=== PATIENT | female | born 1955 | race Caucasian/White ===

== ENCOUNTER → 2017-10-13 15:05 | Outpatient (CLI) | payer OTHER, SELFPAY ==
--- NOTE | 2017-10-13 | DI.RAD.S_ITS ---
PROCEDURE: XR CHEST 2V INDICATIONS: BRONCHITIS TECHNIQUE: 2 views of the chest were acquired. COMPARISON: [facility], , CHEST 2 VIEW, 09/03/2017, 11:38. FINDINGS: Surgical changes and devices: None. Lungs and pleura: No pleural effusions or pneumothorax. 1.5 cm rounded density is seen in the right lung base which may represent a nipple shadow. Otherwise interstitium is prominent no significant change from prior examination. Lung volumes are increased. Mediastinum: Mediastinal contours are normal. Heart size is normal. Bones and chest wall: No suspicious bony abnormalities. Soft tissues appear unremarkable. IMPRESSION: 1. 1.5 cm ill-defined nodular right basilar opacity unchanged which may represent a prominent nipple shadow. When clinically feasible recommend upright chest with nipple markers in position for confirmation. 2. Prominent lung volumes raising the question of COPD and interstitial prominence. Dictated by: J Luis PACK Interpreted: Yuniel Crow MD on 10/13/2017 at 15:20 Approved by: Adi Crow M.D. on 10/16/2017 at 13:01
== END ==
PROVIDERS: Visit Provider Orthopaedic Surgery
DX: J40 Bronchitis, not specified as acute or chronic (principal); R92.8 Other abnormal and inconclusive findings on diagnostic imaging of breast
CPT/HCPCS: 71046

== ENCOUNTER → 2017-10-27 14:35 | Outpatient (CLI) | payer OTHER, SELFPAY ==
--- NOTE | 2017-10-27 | DI.RAD.S_ITS ---
PROCEDURE: XR CHEST 2V INDICATIONS: 62 year-old female with right lower lung nodular opacity on recent chest film. TECHNIQUE: 2 views of the chest were acquired, with nipple markers. COMPARISON: [facility], , XR CHEST 2V, 10/13/2017, 14:51. [facility], , CHEST 2 VIEW, 09/03/2017, 11:38. FINDINGS: Surgical changes and devices: None. Lungs and pleura: No pleural effusions or pneumothorax. Lungs are clear. Previously noted right lower lung finding corresponds with nipple marker. Lung volumes are prominent. Mediastinum: Mediastinal contours are normal. Heart size is normal. Bones and chest wall: No suspicious bony abnormalities. There is small soft tissue calcification adjacent to the right humeral head. IMPRESSION: 1. No acute cardiopulmonary disease. Prominent lung volumes raise the question of chronic obstructive pulmonary disease. 2. Previously reported possible right lower lung nodule corresponds with nipple marker. No further imaging followup is needed. 3. Right shoulder rotator cuff calcific tendinitis. Dictated by: Ramón Womack M.D. on 10/27/2017 at 15:16 Approved by: Ramón Womack M.D. on 10/27/2017 at 15:19
== END ==
PROVIDERS: Visit Provider Family Medicine
DX: R91.8 Other nonspecific abnormal finding of lung field (principal); M75.31 Calcific tendinitis of right shoulder
CPT/HCPCS: 71046

== ENCOUNTER → 2018-06-14 14:59 | Outpatient (CLI) | payer OTHER, SELFPAY ==
--- NOTE | 2018-06-14 | DI.RAD.S_ITS ---
PROCEDURE: XR RIBS RT MIN 3V W CXR 1V INDICATIONS: INTERCOSTAL PAIN TECHNIQUE: 2 views of the right ribs were acquired, along with a single view chest. COMPARISON: None. FINDINGS: Surgical changes and devices: None. Bones and chest wall: No fractures or dislocations. Right shoulder calcific tendinitis No suspicious bony lesions. Overlying soft tissues appear unremarkable. Lungs and pleura: No pleural effusions or pneumothorax. Lungs appear clear. Mediastinum: Mediastinal contours appear normal. Heart size is normal. IMPRESSION: No fracture Right shoulder calcific tendinitis. Dictated by: Bear Suarez M.D. on 06/14/2018 at 16:38 Approved by: Bear Suarez M.D. on 06/14/2018 at 16:41
== END ==
PROVIDERS: Visit Provider Family Medicine
DX: R07.82 Intercostal pain (principal); M75.31 Calcific tendinitis of right shoulder
CPT/HCPCS: 71101

== ENCOUNTER 2019-11-28 10:15 | Emergency (ER) | payer OTHER, SELFPAY ==
[2019-11-28] VITALS (8 sets, daily range): BP systolic 115–138; BP diastolic 63–80; PULSE 75–88; RESP 18–30; TEMP 37; O2SAT 91–97; BMI 15.1
--- NOTE | 2019-11-28 10:41 | PC.NURSE ---
pt pcp tested stool for blood,she was positive sent here. pt denies being dizzy
[2019-11-28 10:45] LABS: Add Manual Diff / Slide Review NO; Basophils Absolute Auto 100 /uL (0-100); Eosinophils Absolute Auto 100 /uL (0-450); Eosinophils Percent Auto 1.1 % (2-4); Hematocrit 41.1 % (36-46); Hemoglobin 13.9 g/dL (12.0-16.0); Lymphocytes Absolute Auto 1400 /uL (1100-4500); Lymphocytes Percent Auto 16.6 % (25-40); Mean Corpuscular HGB Conc 33.9 % (30-36); Mean Corpuscular Hemoglobin 31.1 PG (26-34); Mean Corpuscular Volume 91.6 fL (80-100); Monocytes Absolute Auto 900 /uL (0-900); Monocytes Percent Auto 10.1 % (3-14); Neutrophils Absolute Auto 6100 /uL (1500-7000); Neutrophils Percent Auto 71.2 % (50-75); Platelet Count 294 X10^3/uL (150-400); Red Blood Cell Count 4.49 X10^6/uL (4.0-5.2); White Blood Cell Count 8.5 X10^3/uL (4.5-11.0)
--- NOTE | 2019-11-28 10:47 | ED.GIBLEED ---
HPI - GI Bleed General Chief complaint: GI Bleed Stated complaint: bleeding ulcer Time Seen by Provider: 11/28/19 10:33 Source: patient Mode of arrival: Ambulatory Limitations: no limitations History of Present Illness HPI Narrative: Patient is a 64-year-old female with history of COPD concern for GI bleeding by her PCP. She states she has had pain every time she eats solid food ongoing for about a week. She is able to keep liquids down but she says food and coffee definitely make things much worse. She feels nauseous but has not vomited. She says she has had diarrhea it has been brown however was Hemoccult positive in the office. She denies any dizziness lightheadedness or worsening shortness of breath. Severity: moderate Relieving factors: none Exacerbating factors: none Related Data Previous Rx's Medication Instructions Recorded doxycycline hyclate 100 mg PO Q12H #20 cap 09/03/17 prednisone 40 mg PO AMCC 4 Days #0 tab 09/03/17 omeprazole 40 mg PO BID #60 cap 11/28/19 Allergies Allergy/AdvReac Type Severity Reaction Status Date / Time No Known Drug Allergies Allergy Verified 11/28/19 10:38 Review of Systems Review of Systems Narrative: GENERAL: Denies chills, fatigue, malaise, fever, sweats, travel HEENT: Denies sinus pain, ear pain, sore throat, difficulty swallowing, neck pain RESPIRATORY: Denies dyspnea, cough, wheezing, hemoptysis, sputum. CARDIOVASCULAR: Denies chest pain, palpitations, orthopnea, edema GASTROINTESTINAL: See HPI : Denies dysuria, frequency, incontinence, hematuria, urinary retention, flank pain. MUSCULOSKELETAL: Denies weakness, joint pain, or bony pain SKIN: No rash, no erythema, no pruritus NEUROLOGIC: Denies weakness, dizziness, headache, numbness, change in speech, confusion PSYCHIATRIC: No concerning psychosocial issues. 12 point review of systems is negative except for those stated above and HPI Patient History Medical History COPD exacerbation (Acute) Social History Smoking Status: Current every day smoker Smoking Status: Current every day smoker alcohol intake frequency: holidays/special occasions only Substance Use Type: does not use Exam Initial Vital Signs Initial Vital Signs: Vital Signs Temperature 98.6 F 11/28/19 10:25 Pulse Rate 81 11/28/19 10:25 Respiratory Rate 18 11/28/19 10:25 Blood Pressure 138/71 11/28/19 10:25 Pulse Oximetry 94 11/28/19 10:25 GENERAL: Small frail female in no acute exacerbation HEENT: Head atraumatic,EOMI, pupils reactive CARDIOVASCULAR: Regular rate and rhythm without murmurs, rubs or gallops. RESPIRATORY: Breath sounds equal bilaterally, no wheezes rales or rhonchi. ABDOMEN: Soft, nontender. Normoactive bowel sounds all 4 quadrants. No guarding or rebound. EXTREMITIES: Normal range of motion, no clubbing or edema. Neurovascularly intact NEUROLOGICAL: Alert and oriented x4.Normal gait and speech. SKIN: Warm, dry, no laceration, no petechiae, no rashes or lesions. Course Orders Ordered: ED Orders 11/28/19 10:32 Complete Blood Count AUTO DIFF Stat Comprehensive Metabolic Panel Stat Lactate (Lactic Acid) Stat Lipase Stat Partial Thromboplastin Time Stat Prothrombin Time INR Stat 11/28/19 10:38 EKG-12 Lead Stat 11/28/19 11:26 CT abdomen pelvis w con Stat Discontinued Medications Pantoprazole Sodium (Protonix) 40 mg IV NOW ONE Stop: 11/28/19 10:47 Last Admin: 11/28/19 10:51 Dose: 40 mg Documented by: BYRON Vital Signs Vital signs: Vital Signs - 8 hr 11/28/19 10:25 11/28/19 10:26 11/28/19 10:30 Temperature 98.6 F Pulse Rate 81 81 75 Respiratory Rate 18 23 Blood Pressure 138/71 138/71 134/63 Pulse Oximetry 94 95 97 11/28/19 11:00 11/28/19 11:34 11/28/19 11:35 Temperature Pulse Rate 76 84 Respiratory Rate 30 H 22 Blood Pressure 115/72 127/68 Pulse Oximetry 97 94 11/28/19 12:20 11/28/19 12:21 Temperature Pulse Rate 88 Respiratory Rate 30 H Blood Pressure 134/80 Pulse Oximetry 91 MDM - GI Bleed Lab Data Attestation: I reviewed the patient's lab results. Result diagrams: 11/28/19 10:32 11/28/19 10:32 Labs: Lab Results 0711/28/19 11/28/19 Range/Units 10:32 10:32 10:32 WBC 8.5 (4.5-11.0) X10^3/uL RBC 4.49 (4.0-5.2) X10^6/uL Hgb 13.9 (12.0-16.0) g/dL Hct 41.1 (36-46) % MCV 91.6 (80-100) fL MCH 31.1 (26-34) PG MCHC 33.9 (30-36) % RDW 14.0 (11.6-14.8) % Plt Count 294 (150-400) X10^3/uL Neut % (Auto) 71.2 (50-75) % Lymph % (Auto) 16.6 L (25-40) % [place] % (Auto) 10.1 (3-14) % Eos % (Auto) 1.1 L (2-4) % Baso % (Auto) 1.0 (0-2) % Neut # (Auto) 6100 (0205-0755) /uL Lymph # (Auto) 1400 (5320-8099) /uL [place] # (Auto) 900 (0-900) /uL Eos # (Auto) 100 (0-450) /uL Baso # (Auto) 100 (0-100) /uL PT 11.3 (10.1-12.7) SECONDS INR 1.0 (0.9-1.3) APTT 30 (26.4-36.2) SECONDS Sodium 140 (137-145) mmol/L Potassium 3.5 (3.4-5.1) mmol/L Chloride 105 (98-107) mmol/L Carbon Dioxide 31 (22-32) mmol/L BUN 35 H (7-17) mg/dL Creatinine 0.54 (0.52-1.04) mg/dL Estimated GFR > 60.0 (>60) mL/min BUN/Creatinine Ratio 64.8 H (6-22) Glucose 97 (80-110) mg/dL Lactate (0.7-2.1) mmol/L Calcium 9.2 (8.4-10.2) mg/dL Total Bilirubin 0.4 (0.2-1.3) mg/dL AST 52 H (14-36) IU/L ALT 60 H (<35) IU/L Alkaline Phosphatase 71 (38-126) U/L Total Protein 7.2 (6.3-8.2) g/dL Albumin 4.1 (3.5-5.0) g/dL Globulin 3.1 (1.7-4.1) g/dL Albumin/Globulin Ratio 1.3 (1.0-2.8) Lipase (23-300) U/L 11/28/19 11/28/19 Range/Units 10:32 10:32 WBC (4.5-11.0) X10^3/uL RBC (4.0-5.2) X10^6/uL Hgb (12.0-16.0) g/dL Hct (36-46) % MCV (80-100) fL MCH (26-34) PG MCHC (30-36) % RDW (11.6-14.8) % Plt Count (150-400) X10^3/uL Neut % (Auto) (50-75) % Lymph % (Auto) (25-40) % [place] % (Auto) (3-14) % Eos % (Auto) (2-4) % Baso % (Auto) (0-2) % Neut # (Auto) (9015-4151) /uL Lymph # (Auto) (0818-4786) /uL [place] # (Auto) (0-900) /uL Eos # (Auto) (0-450) /uL Baso # (Auto) (0-100) /uL PT (10.1-12.7) SECONDS INR (0.9-1.3) APTT (26.4-36.2) SECONDS Sodium (137-145) mmol/L Potassium (3.4-5.1) mmol/L Chloride (98-107) mmol/L Carbon Dioxide (22-32) mmol/L BUN (7-17) mg/dL Creatinine (0.52-1.04) mg/dL Estimated GFR (>60) mL/min BUN/Creatinine Ratio (6-22) Glucose (80-110) mg/dL Lactate 0.7 (0.7-2.1) mmol/L Calcium (8.4-10.2) mg/dL Total Bilirubin (0.2-1.3) mg/dL AST (14-36) IU/L ALT (<35) IU/L Alkaline Phosphatase (38-126) U/L Total Protein (6.3-8.2) g/dL Albumin (3.5-5.0) g/dL Globulin (1.7-4.1) g/dL Albumin/Globulin Ratio (1.0-2.8) Lipase 87 (23-300) U/L Urine Dip Bedside Urine Glucose Negative Bedside Urine Bilirubin - Negative Bedside Urine Ketone - Negative Urine Specific [place] 1.005 Bedside Urine Occult Blood - Negative Bedside Urine pH 8.5 Bedside Urine Protein - Negative Bedside Urine Urobilinogen - Negative Bedside Urine Nitrite - Negative Bedside Urine Leukocytes - Negative Esterase Imaging Data CT scan - abdomen/pelvis: Radiologist's Impression: PROCEDURE: CT ABDOMEN PELVIS W CON INDICATIONS: abdominal pain mid TECHNIQUE: After the administration of intravenous contrast, 5 mm thick sections acquired from the diaphragm to the symphysis. 5 mm coronal and sagittal reformats were acquired. For radiation dose reduction, the following was used: automated exposure control, adjustment of mA and/or kV according to patient size. COMPARISON: None. FINDINGS: Image quality: Excellent. ABDOMEN: Lung bases: There are emphysematous changes within the visualized lung bases. Heart size is normal. Solid organs: Evaluation of the liver demonstrates no focal hepatic lesions. The gallbladder appears within normal limits without calcified gallstones. Biliary system is non-dilated. Pancreas enhances normally. No peripancreatic fat stranding or fluid collections. No pancreatic duct dilatation. The spleen is normal in size. No adrenal nodules. Kidneys demonstrate no hydronephrosis. Peritoneum and bowel: There is concentric gastric wall thickening in the antrum. Bowel loops demonstrate normal wall thickness and caliber. Multiple air-fluid levels are demonstrated throughout the small and large bowel. No evidence of appendicitis. No free fluid or air. Nodes and vessels: No retroperitoneal or mesenteric adenopathy by size criteria. Aorta and inferior vena cava are normal in size. Miscellaneous: No ventral hernias. PELVIS: Genitourinary: Bladder wall thickness is normal. Miscellaneous: No inguinal hernias or adenopathy. Bones: No suspicious bony lesions. No vertebral body compression fractures. IMPRESSION: 1. Concentric gastric wall thickening in the antrum consistent with a nonspecific gastritis. 2. Air-fluid levels demonstrated throughout nondilated small and large bowel loops. Findings are nonspecific but suggestive of a gastroenteritis. Dictated by: Eyad Koch M.D. on 11/28/2019 at 11:52 Approved by: Eyad Koch M.D. on 11/28/2019 at 12:00 ECG Data Attestation: I personally reviewed and interpreted this ECG as follows: Interpretation: Normal sinus rhythm rate 76 p.r. interval [address] elevation depression or T-wave in MDM Narrative Medical decision making narrative: Patient's hemoglobin hematocrit are actually within normal limits. She does have pain on palpation the CT does show possible gastritis no perforations. He has had symptoms ongoing for about a week at this time I feel it is safe to start her on omeprazole and have her follow up outpatient with her PCP and for GI referral. Discharge Plan Departure Patient Disposition: Home Clinical Impression: Gastritis Qualifiers: Gastritis type: unspecified gastritis Chronicity: acute Gastritis bleeding: presence of bleeding unspecified Qualified Code(s): K29.00 - Acute gastritis without bleeding Discharge Date/Time: 11/28/19 12:49 Instructions: DI for Gastric Ulcer Activity Restrictions/Additional Instructions: *You have been diagnosed with presumed gastric ulcer *What to do: Avoid acidic foods intake and the increase diet as tolerated. I recommend GI referral for endoscopy and further testing please talk to your primary care provider about this *Continue to take medications as directed Omeprazole 40 mg twice a day 30 minutes before meal *Follow up with your primary care provider in 2-3 days *Return to ER if you should have increasing abdominal pain and dizziness lightheadedness black stools vomiting coffee-ground like substance or any new, worsening or concerning symptoms Prescriptions: New omeprazole 40 mg capsule,delayed release(DR/EC) 40 mg PO BID Qty: 60 RF: 0 No Action doxycycline hyclate 100 MG capsule 100 mg PO Q12H Qty: 20 RF: 0 prednisone 20 MG tablet 40 mg PO AMCC 4 Days Qty: 0 RF: 0 Referrals: Leoncio Rodriguez MD [Primary Care Provider] -
[2019-11-28 10:48] LABS: Prothrombin Time 11.3 SECONDS (10.1-12.7)
[2019-11-28 10:51] LABS: PTT Partial Thromboplastin Tim 30 SECONDS (26.4-36.2)
[2019-11-28] MEDS: PANTOPRAZOLE 40 MG VIAL IV (10:51)
[2019-11-28 10:52] LABS: Alanine Aminotransferase 60 IU/L (<35); Albumin 4.1 g/dL (3.5-5.0); Albumin Globulin Ratio 1.3 (1.0-2.8); Alkaline Phosphatase 71 U/L (38-126); Aspartate Aminotransferase 52 IU/L (14-36); BUN Creatinine Ratio 64.8 (6-22); Bilirubin Total 0.4 mg/dL (0.2-1.3); Blood Urea Nitrogen 35 mg/dL (7-17); Calcium 9.2 mg/dL (8.4-10.2); Carbon Dioxide 31 mmol/L (22-32); Chloride 105 mmol/L (98-107); Estimated Glomerular Filt Rate > 60.0 mL/min (>60); Globulin 3.1 g/dL (1.7-4.1); Glucose 97 mg/dL (80-110); HEMOLYSIS < 15 (0-50); Potassium 3.5 mmol/L (3.4-5.1); Sodium 140 mmol/L (137-145); Total Protein 7.2 g/dL (6.3-8.2)
[2019-11-28 11:01] LABS: Lipase 87 U/L (23-300)
[2019-11-28 11:02] LABS: Lactate (Lactic Acid) 0.7 mmol/L (0.7-2.1)
--- NOTE | 2019-11-28 11:26 | DI.CT.S_ITS ---
PROCEDURE: CT ABDOMEN PELVIS W CON INDICATIONS: abdominal pain mid TECHNIQUE: After the administration of intravenous contrast, 5 mm thick sections acquired from the diaphragm to the symphysis. 5 mm coronal and sagittal reformats were acquired. For radiation dose reduction, the following was used: automated exposure control, adjustment of mA and/or kV according to patient size. COMPARISON: None. FINDINGS: Image quality: Excellent. ABDOMEN: Lung bases: There are emphysematous changes within the visualized lung bases. Heart size is normal. Solid organs: Evaluation of the liver demonstrates no focal hepatic lesions. The gallbladder appears within normal limits without calcified gallstones. Biliary system is non-dilated. Pancreas enhances normally. No peripancreatic fat stranding or fluid collections. No pancreatic duct dilatation. The spleen is normal in size. No adrenal nodules. Kidneys demonstrate no hydronephrosis. Peritoneum and bowel: There is concentric gastric wall thickening in the antrum. Bowel loops demonstrate normal wall thickness and caliber. Multiple air-fluid levels are demonstrated throughout the small and large bowel. No evidence of appendicitis. No free fluid or air. Nodes and vessels: No retroperitoneal or mesenteric adenopathy by size criteria. Aorta and inferior vena cava are normal in size. Miscellaneous: No ventral hernias. PELVIS: Genitourinary: Bladder wall thickness is normal. Miscellaneous: No inguinal hernias or adenopathy. Bones: No suspicious bony lesions. No vertebral body compression fractures. IMPRESSION: 1. Concentric gastric wall thickening in the antrum consistent with a nonspecific gastritis. 2. Air-fluid levels demonstrated throughout nondilated small and large bowel loops. Findings are nonspecific but suggestive of a gastroenteritis. Dictated by: Eyad Koch M.D. on 11/28/2019 at 11:52 Approved by: Eyad Koch M.D. on 11/28/2019 at 12:00
== END 2019-11-28 12:49 | disposition home or self-care (01) ==
PROVIDERS: Emergency Provider Emergency Medicine; PCP Family Medicine
DX: K29.00 Acute gastritis without bleeding (principal)
CPT/HCPCS: 36415; 74177; 80053; 81003; 83605; 83690; 85025; 85610; 85730; 93005; 96374; 99284; C9113; Q9967

== ENCOUNTER → 2020-01-30 16:22 | Outpatient (CLI) | payer OTHER, SELFPAY ==
--- NOTE | 2020-01-30 | DI.RAD.S_ITS ---
PROCEDURE: XR CHEST 2V INDICATIONS: WORSENING COPD TECHNIQUE: 2 views of the chest were acquired. COMPARISON: [facility], CR, XR CHEST 2V, 10/13/2017, 14:51. [facility], CR, XR CHEST 2V, 10/27/2017, 14:18. FINDINGS: Surgical changes and devices: None. Lungs and pleura: Lungs are clear. Lung volumes are increased with flattening of the hemidiaphragms suggesting COPD. Prominent bibasilar nipple shadows are again identified similar to prior examination. No pleural effusions or pneumothorax. Mediastinum: Mediastinal contours are normal. Heart size is normal. Bones and chest wall: No suspicious bony abnormalities. Soft tissues appear unremarkable. IMPRESSION: Lung volumes are increased suggesting COPD, correlate with pulmonary functions test. Bibasilar prominent nipple shadows. Dictated by: J Luis Jason [facility] Interpreted: Ryan Field MD on 01/30/2020 at 16:47 Approved by: Ryan Field M.D. on 01/30/2020 at 16:55
== END ==
PROVIDERS: PCP Family Medicine; Referring Provider Family Medicine; Visit Provider Family Medicine
DX: J44.9 Chronic obstructive pulmonary disease, unspecified (principal)
CPT/HCPCS: 71046

== ENCOUNTER 2021-08-24 09:42 | Inpatient (IN) | payer SELFPAY ==
[2021-08-24] VITALS (20 sets, daily range): BP systolic 122–170; BP diastolic 61–79; PULSE 74–94; RESP 18–30; TEMP 36.7–37.1; O2SAT 85–99; BMI 14.2
--- NOTE | 2021-08-24 09:33 | DI.RAD.S_ITS ---
PROCEDURE: XR CHEST 1V INDICATIONS: SOB TECHNIQUE: One view of the chest was acquired. COMPARISON: None. FINDINGS: Surgical changes and devices: None. Lungs and pleura: Pulmonary hyperinflation and chronic interstitial changes noted. No pneumothorax. Bilateral nipple shadows are symmetric. Mediastinum: Mediastinal contours appear normal. Heart size is normal. Bones and chest wall: Generalized decrease in osseous mineralization noted. Ovoid calcification projecting lateral to the right humeral head may reflect glenohumeral loose body IMPRESSION: No acute cardiopulmonary findings Hyperinflation and chronic interstitial changes Approved by: Pérez Riddle M.D. on 08/24/2021 at 9:25
[2021-08-24] MEDS: ALBUTEROL 2.5 MG/3 ML NEB (ADULT) 5 MG INH (09:51)
[2021-08-24 10:04] LABS: Add Manual Diff / Slide Review NO; Basophils Absolute Auto 0 /uL (0-100); Basophils Percent Auto 0.2 % (0-2); Eosinophils Absolute Auto 0 /uL (0-450); Eosinophils Percent Auto 0.3 % (2-4); Hematocrit 40.5 % (36-46); Hemoglobin 13.4 g/dL (12.0-16.0); Lymphocytes Absolute Auto 1000 /uL (1100-4500); Lymphocytes Percent Auto 7.8 % (25-40); Mean Corpuscular Hemoglobin 31.8 PG (26-34); Mean Corpuscular Volume 96.2 fL (80-100); Monocytes Absolute Auto 1300 /uL (0-900); Monocytes Percent Auto 10.7 % (3-14); Neutrophils Absolute Auto 10000 /uL (1500-7000); Platelet Count 325 X10^3/uL (150-400); Red Blood Cell Count 4.21 X10^6/uL (4.0-5.2); Red Cell Distribution Width 14.1 % (11.6-14.8); White Blood Cell Count 12.3 X10^3/uL (4.5-11.0)
[2021-08-24 10:10] LABS: Alanine Aminotransferase 43 IU/L (<35); Albumin 4.2 g/dL (3.5-5.0); Albumin Globulin Ratio 1.6 (1.0-2.8); Alkaline Phosphatase 46 U/L (38-126); Aspartate Aminotransferase 40 IU/L (14-36); Bilirubin Total 0.5 mg/dL (0.2-1.3); Blood Urea Nitrogen 50 mg/dL (7-17); Calcium 8.8 mg/dL (8.4-10.2); Carbon Dioxide 37 mmol/L (22-32); Chloride 94 mmol/L (98-107); Estimated Glomerular Filt Rate > 60.0 mL/min (>60); Globulin 2.6 g/dL (1.7-4.1); Glucose 103 mg/dL (80-110); HEMOLYSIS < 15 (0-50); Potassium 4.3 mmol/L (3.4-5.1); Sodium 132 mmol/L (137-145); Total Protein 6.8 g/dL (6.3-8.2)
[2021-08-24 10:11] LABS: Lactate (Lactic Acid) 0.6 mmol/L (0.7-2.1)
[2021-08-24 10:40] LABS: COVID19 -Nasal RAPID Negative (Negative)
[2021-08-24] MEDS: ACETAMINOPHEN 325 MG TABLET 650 MG PO (10:44)
--- NOTE | 2021-08-24 11:01 | ED.GENADULT ---
HPI - General Adult General Chief complaint: Shortness of Breath/Dyspnea Stated complaint: SOB, Dyspnea Time Seen by Provider: 08/24/21 10:05 Source: patient and EMS Mode of arrival: EMS History of Present Illness HPI narrative: Patient is a 66-year-old female. Current smoker. History of COPD. Not currently on home oxygen. Does have multiple inhalers that she uses. States that last evening she had a increase in her shortness of breath that worsened throughout the day. She was using her inhalers without any improvement. She does not have any nebulizers at home. She denies any fevers. Does have a cough but not necessarily any more productive than what it normally is. She denies chest pain. No lower extremity swelling. Abdominal pain. No specific neurologic symptoms. She received nebulizer by EMS EN route which she states helped her symptoms quite a bit. She does report that she gets quite a bit of shortness of breath with exertion at baseline. She does not see a special events fundraiser. Related Data Previous Rx's Medication Instructions Recorded doxycycline hyclate 100 mg capsule 100 mg PO Q12H #20 cap 09/03/17 prednisone 20 mg tablet 40 mg PO [facility] 4 Days #0 tab 09/03/17 omeprazole 40 mg capsule,delayed 40 mg PO BID #60 cap 11/28/19 release Allergies Allergy/AdvReac Type Severity Reaction Status Date / Time No Known Drug Allergies Allergy Verified 11/28/19 10:38 Review of Systems Review of Systems ROS Unobtainable: All systems reviewed & are unremarkable except as noted in HPI and below Patient History Medical History COPD exacerbation Social History Smoking Status: Former smoker Smoking Status: Former smoker alcohol intake frequency: holidays/special occasions only Substance Use Type: does not use Exam Initial Vital Signs Initial Vital Signs: Vital Signs Pulse Rate 94 H 08/24/21 09:43 Pulse Oximetry 94 08/24/21 09:43 Const General: cooperative and No in distress HENMT Head: normal to inspection and normocephalic Neck Neck: normal visual inspection Chest Chest: normal inspection of the chest Resp Effort & Inspection: cough, labored and tachypneic Auscultation: rhonchi and wheezes Cardio Rate: regular rate Rhythm: regular rhythm GI Palpation: soft and No tender Skin General: no rashes or lesions noted Neuro General: patient alert, patient awake, patient oriented x3 and moves all extremities Extrem General: capillary refill normal Psych Appearance: grossly normal Course Orders Ordered: Albuterol/Ipratropium (Albuterol/Ipratropium 3 Ml Ampul) 3 ml INH [id number] PRN PRN Reason: Shortness Of Breath Budesonide (Budesonide 0.5 Mg/2 Ml Neb) 0.5 mg INH RTBID DMITRY Enoxaparin Sodium (Enoxaparin 30 Mg/0.3 Ml Syringe) 30 mg SUBCUT DAILY DMITRY Azithromycin 500 mg/ Dextrose 250 mls @ 250 mls/hr IV Q24H DMITRY Nicotine (Nicotine 14 Patch) 14 mg TOP DAILY DMITRY Pantoprazole Sodium (Pantoprazole Dr 20 Mg Tablet) 20 mg PO 0700,2100 DMITRY Prednisone (Prednisone 20 Mg Tablet) 30 mg PO DAILY DMITRY Discontinued Medications Acetaminophen (Acetaminophen 325 Mg Tablet) 650 mg PO NOW ONE Stop: 08/24/21 10:06 Last Admin: 08/24/21 10:44 Dose: 650 mg Documented by: RADHA Albuterol (Albuterol 2.5 Mg/3 Ml Neb (Adult)) 5 mg INH NOW ONE Stop: 08/24/21 09:48 Last Admin: 08/24/21 09:51 Dose: 5 mg Documented by: VANESAO Azithromycin 500 mg/ Dextrose 250 mls @ 250 mls/hr IV NOW ONE Stop: 08/24/21 13:12 Last Infusion: 08/24/21 14:52 Dose: 0 mls/hr Documented by: Admin: 08/24/21 13:30 Dose: 250 mls/hr Documented by: RADHA Ibuprofen (Ibuprofen 400 Mg Tablet) 800 mg PO NOW ONE Stop: 08/24/21 13:16 Last Admin: 08/24/21 13:30 Dose: 800 mg Documented by: RAHDA Methylprednisolone (Methylprednisolone 125 Mg/2 Ml Vial) 125 mg IV NOW ONE Stop: 08/24/21 11:03 Last Admin: 08/24/21 11:15 Dose: 125 mg Documented by: RADHA Vital Signs Vital signs: Vital Signs - 8 hr 08/24/21 11:00 08/24/21 11:30 08/24/21 11:43 Pulse Rate 88 84 Respiratory Rate 28 H 22 Blood Pressure 170/77 H 137/66 Pulse Oximetry 89 L 98 96 08/24/21 11:48 08/24/21 12:00 08/24/21 12:30 Pulse Rate 86 84 Respiratory Rate 30 H 21 Blood Pressure 154/72 H 148/70 H Pulse Oximetry 85 L 92 93 Medical Decision Making Lab Data Lab results reviewed: Yes I reviewed the patient's lab results. Result diagrams: 08/24/21 09:45 08/24/21 09:45 Labs: Lab Results 08/24/21 08/24/21 08/24/21 Range/Units 09:45 09:45 09:45 WBC 12.3 H (4.5-11.0) X10^3/uL RBC 4.21 (4.0-5.2) X10^6/uL Hgb 13.4 (12.0-16.0) g/dL Hct 40.5 (36-46) % MCV 96.2 (80-100) fL MCH 31.8 (26-34) PG MCHC 33.0 (30-36) % RDW 14.1 (11.6-14.8) % Plt Count 325 (150-400) X10^3/uL Neut % (Auto) 81.0 H (50-75) % Lymph % (Auto) 7.8 L (25-40) % [place] % (Auto) 10.7 (3-14) % Eos % (Auto) 0.3 L (2-4) % Baso % (Auto) 0.2 (0-2) % Neut # (Auto) 09219 H (7355-2767) /uL Lymph # (Auto) 1000 L (0985-1468) /uL [place] # (Auto) 1300 H (0-900) /uL Eos # (Auto) 0 (0-450) /uL Baso # (Auto) 0 (0-100) /uL Sodium 132 L (137-145) mmol/L Potassium 4.3 (3.4-5.1) mmol/L Chloride 94 L (98-107) mmol/L Carbon Dioxide 37 H (22-32) mmol/L BUN 50 H (7-17) mg/dL Creatinine 0.41 L (0.52-1.04) mg/dL Estimated GFR > 60.0 (>60) mL/min BUN/Creatinine Ratio 122.0 H (6-22) Glucose 103 (80-110) mg/dL Lactate 0.6 L (0.7-2.1) mmol/L Calcium 8.8 (8.4-10.2) mg/dL Total Bilirubin 0.5 (0.2-1.3) mg/dL AST 40 H (14-36) IU/L ALT 43 H (<35) IU/L Alkaline Phosphatase 46 (38-126) U/L Total Protein 6.8 (6.3-8.2) g/dL Albumin 4.2 (3.5-5.0) g/dL Globulin 2.6 (1.7-4.1) g/dL Albumin/Globulin Ratio 1.6 (1.0-2.8) SARS-CoV-2 (PCR) (Negative) 08/24/21 Range/Units 09:55 WBC (4.5-11.0) X10^3/uL RBC (4.0-5.2) X10^6/uL Hgb (12.0-16.0) g/dL Hct (36-46) % MCV (80-100) fL MCH (26-34) PG MCHC (30-36) % RDW (11.6-14.8) % Plt Count (150-400) X10^3/uL Neut % (Auto) (50-75) % Lymph % (Auto) (25-40) % [place] % (Auto) (3-14) % Eos % (Auto) (2-4) % Baso % (Auto) (0-2) % Neut # (Auto) (9328-2739) /uL Lymph # (Auto) (9057-5612) /uL [place] # (Auto) (0-900) /uL Eos # (Auto) (0-450) /uL Baso # (Auto) (0-100) /uL Sodium (137-145) mmol/L Potassium (3.4-5.1) mmol/L Chloride (98-107) mmol/L Carbon Dioxide (22-32) mmol/L BUN (7-17) mg/dL Creatinine (0.52-1.04) mg/dL Estimated GFR (>60) mL/min BUN/Creatinine Ratio (6-22) Glucose (80-110) mg/dL Lactate (0.7-2.1) mmol/L Calcium (8.4-10.2) mg/dL Total Bilirubin (0.2-1.3) mg/dL AST (14-36) IU/L ALT (<35) IU/L Alkaline Phosphatase (38-126) U/L Total Protein (6.3-8.2) g/dL Albumin (3.5-5.0) g/dL Globulin (1.7-4.1) g/dL Albumin/Globulin Ratio (1.0-2.8) SARS-CoV-2 (PCR) Negative (Negative) MDM Narrative Medical decision making narrative: Patient reports improvement of symptoms after nebulizer treatment. She was also given steroids. Patient did remain somewhat tachypneic and when she was placed on room air her oxygen saturations dropped to the mid 80s without any exertion. This did improve quite a bit with oxygen by nasal cannula. Had at discussion with her and her son who is at bedside. Informed her that I was concerned about discharge home because of her issues with hypoxia although I did admit that she most likely is hypoxic at home and does not necessarily recognize it. Informed her that she was most likely going to require oxygen at home given her presentation today. Despite this conversation and the concerns for worsening of symptoms potentially even the patient stated that she would like to go home and follow-up with her primary doctor for which she has an appointment already scheduled later this week. Patient was going to sign against medical advice paperwork. Emanuel IV was removed and she was taken off the monitors and with a very small amount of exertion to the wheelchair the patient became very tachypneic. Was at that point the patient stated that she was willing to stay. I did discuss the case with Dr. Savage with internal medicine who will admit for further evaluation and treatment. Discharge Plan Departure Patient Disposition: Admitted As Inpatient Clinical Impression: COPD exacerbation, Hypoxia Admit Date/Time: 08/24/21 13:12 Admit Provider: Niyah Savage
[2021-08-24] MEDS: methylPREDNISolone 125 MG/2 ML VIAL IV (11:15)
[2021-08-24] MEDS: AZITHROMYCIN 500 MG in DEXTROSE 5% IN WATER 250 ML IV (13:30)
[2021-08-24] MEDS: IBUPROFEN 400 MG TABLET 800 MG PO (13:30)
--- NOTE | 2021-08-24 13:41 | PC.NURSE ---
Patient decided to stay after she had almost left AMA. Son, Eyad would like his name included in the chart: [phone]
--- NOTE | 2021-08-24 16:27 | PM.HP.1 ---
History of Present Illness History of Present Illness Chief complaint: SOB, Dyspnea Narrative: 66yo female with a hx of GERD and COPD that presents with SOB. She reports this started last night. She was coming home from work, and arrived home once she started feeling SOB. This was not associated with exertion, and occurred even with rest. This was associated with a headache. The patient reports that this has been intermittent issue for a while now. She denies ever being on supplemental oxygen at home. She reports having issues with insurance covering supplemental oxygen in the past. The patient does endorse being on a PO prednisone taper as ordered by her PCP, along with recently finishing 10 days of Augmentin bid. The patient endorses smoking tobacco since the age of 16, approximately 1.5 ppd. She denies EtOH or illicit drug use. She endorses being up-to-date with her cancer screening, i.e. colonoscopy, mammogram, etc. She denies fever/chills, night sweats, hx of VTE, CP, palpitations, peripheral edema, recent travel. She denies any PSH. Family hx is positive for mother and father with DM II, father with heart issues and mother with breast cancer. The patient reports taking her medications, including her inhalers, consistently. She denies any new meds. She has a PCP that she sees regularly. She works as a care provider for intellectually disabled adults. Patient History Medical History (Updated 08/24/21 @ 12:41 by Leoncio De La Rosa DO) COPD exacerbation Family & Social History Safety & Behavioral: Feels Safe in Current Yes Environment Been Physically Hurt or No Threatened By a Person Tobacco & Substance use: Smoking Status Former smoker alcohol intake frequency holiday/special occasion Substance Use Type does not use Meds Home Medications and Allergies Home Medications Medication Instructions Recorded Confirmed Type doxycycline hyclate 100 mg capsule 100 mg PO Q12H #20 cap 09/03/17 Rx prednisone 20 mg tablet 40 mg PO [facility] 4 Days #0 tab 09/03/17 Rx omeprazole 40 mg capsule,delayed 40 mg PO BID #60 cap 11/28/19 Rx release Allergies Allergy/AdvReac Type Severity Reaction Status Date / Time No Known Drug Allergies Allergy Verified 11/28/19 10:38 Review of Systems Constitutional Comments: Denies fever/chills, night sweats. Eyes Comments: Denies vision changes. Cardiovascular Comments: Denies CP, palpitations, peripheral edema. Respiratory Comments: Endorses SOB, and non-productive cough. Gastrointestinal Comments: Denies abd pain, n/v/d. Neurologic Comments: Endorses headache. Denies neck stiffness, photophobia. Exam Vital Signs (past 8 hours): - 08/24/21 09:43 08/24/21 09:50 08/24/21 09:59 Temperature 98.7 F Pulse Rate 94 H 86 Respiratory Rate 26 H Blood Pressure 169/79 H Pulse Oximetry 94 94 94 08/24/21 10:00 08/24/21 10:30 08/24/21 10:50 Temperature Pulse Rate 85 82 Respiratory Rate 22 23 Blood Pressure 169/79 H 154/74 H Pulse Oximetry 89 L 99 98 08/24/21 10:57 08/24/21 11:00 08/24/21 11:30 Temperature Pulse Rate 88 84 Respiratory Rate 28 H 22 Blood Pressure 170/77 H 137/66 Pulse Oximetry 95 89 L 98 08/24/21 11:43 08/24/21 11:48 08/24/21 12:00 Temperature Pulse Rate 86 Respiratory Rate 30 H Blood Pressure 154/72 H Pulse Oximetry 96 85 L 92 08/24/21 12:30 08/24/21 13:40 08/24/21 16:22 Temperature 98.1 F Pulse Rate 84 74 78 Respiratory Rate 21 22 22 Blood Pressure 148/70 H 150/61 H Pulse Oximetry 93 99 92 Oxygen Delivery Method Nasal Cannula Oxygen Flow Rate 5 Const Other: Patient laying in bed comfortably upon my entering the room, in no apparent acute distress. Eyes Other: No scleral icterus appreciated. Neck Other: No carotid bruits appreciated. Resp Other: Scattered expiratory wheezes appreciated bilaterally. Cardio Other: RRR. S1 and S2 normal, with no extra heart sounds or murmurs appreciated. GI Other: Soft, non-distended, non-tender. Bowel sounds present. Skin Other: No grossly abnormal skin lesions noted. Extrem Other: Palpable dorsalis pedis pulses bilaterally. Objective Labs Result Diagrams: 08/24/21 09:45 08/24/21 09:45 Labs: Laboratory Results - last 24 hr 08/24/21 08/24/21 08/24/21 09:45 09:45 09:45 WBC 12.3 H RBC 4.21 Hgb 13.4 Hct 40.5 MCV 96.2 MCH 31.8 MCHC 33.0 RDW 14.1 Plt Count 325 Neut % (Auto) 81.0 H Lymph % (Auto) 7.8 L [place] % (Auto) 10.7 Eos % (Auto) 0.3 L Baso % (Auto) 0.2 Neut # (Auto) 32477 H Lymph # (Auto) 1000 L [place] # (Auto) 1300 H Eos # (Auto) 0 Baso # (Auto) 0 Sodium 132 L Potassium 4.3 Chloride 94 L Carbon Dioxide 37 H BUN 50 H Creatinine 0.41 L Estimated GFR > 60.0 BUN/Creatinine Ratio 122.0 H Glucose 103 Lactate 0.6 L Calcium 8.8 Total Bilirubin 0.5 AST 40 H ALT 43 H Alkaline Phosphatase 46 Total Protein 6.8 Albumin 4.2 Globulin 2.6 Albumin/Globulin Ratio 1.6 SARS-CoV-2 (PCR) 08/24/21 09:55 WBC RBC Hgb Hct MCV MCH MCHC RDW Plt Count Neut % (Auto) Lymph % (Auto) [place] % (Auto) Eos % (Auto) Baso % (Auto) Neut # (Auto) Lymph # (Auto) [place] # (Auto) Eos # (Auto) Baso # (Auto) Sodium Potassium Chloride Carbon Dioxide BUN Creatinine Estimated GFR BUN/Creatinine Ratio Glucose Lactate Calcium Total Bilirubin AST ALT Alkaline Phosphatase Total Protein Albumin Globulin Albumin/Globulin Ratio SARS-CoV-2 (PCR) Negative Assessment & Plan Assessment & Plan narrative: Assessment: 1. Acute exacerbation of COPD 2. GERD 3. Hypertension 4. Nicotine dependency Plan: 1. IV Azithromycin and PO prednisone on-board. Will likely need home oxygen on discharge. Will discharge home on PO levofloxacin 750 mg daily to complete abx course. 2. Will start PO Protonix 20 mg bid, as Prilosec is not on formulary here. 3. Will likely start PO lisinopril 20 mg daily if elevated BP sustained. 4. Patient has 1.5 ppd smoking history since age 16. Will start nicotine patch inpatient. VTE prophylaxis: Lovenox 30 mg daily Code: Full I have utilized all available immediate resources to reconcile the patient's medications. Time Spent With Patient Critical Care time: I spent a total of [] minutes of critical care time on this patient's care today; this time is exclusive of procedural time. Quality MIPS - Admit I confirm the patient?s Advance Care Plan is present, Code status is documented, Surrogate decision maker is in patient?s record [If Yes, STOP here]: Yes
[2021-08-24] MEDS: ALBUTEROL/IPRATROPIUM 3 ML AMPUL INH (19:30)
[2021-08-24] MEDS: BUDESONIDE 0.5 MG/2 ML NEB INH (19:30)
[2021-08-24] MEDS: PANTOPRAZOLE DR 20 MG TABLET PO (21:16)
[2021-08-25] VITALS (9 sets, daily range): BP systolic 111–124; BP diastolic 64–76; PULSE 60–90; RESP 12–22; TEMP 37–37.6; O2SAT 90–97
[2021-08-25] MEDS: PANTOPRAZOLE DR 20 MG TABLET PO ×2 (06:44→20:51)
--- NOTE | 2021-08-25 08:30 | DI.CT.S_ITS ---
PROCEDURE: CT CHEST W CON INDICATIONS: 60 pack-year smoking hx, weight loss, concern for malignancy TECHNIQUE: After the administration of intravenous contrast, 5 mm thick sections acquired from the pulmonary apices to the posterior costophrenic angles. 1 mm axial lung, 5 mm thick coronal and sagittal reformats and 7 mm axial MIP were acquired. For radiation dose reduction, the following was used: automated exposure control, adjustment of mA and/or kV according to patient size. COMPARISON: [facility], CR, XR CHEST 1V, 08/24/2021, 9:48. FINDINGS: Image quality: Excellent. Lungs and pleura: Moderate centrilobular emphysema. Emphysematous changes appear to be worse in the lower lobes bilaterally. Mild biapical pleural-parenchymal scarring. No acute air space opacities. Pleural thickening is seen along the posterior aspect of the superior segment of the right lower lobe adjacent to the major fissure. No pleural effusions or pneumothorax. Central and peripheral airways are patent and normal in caliber. A 7 x 4 mm solid nodule is seen in the lateral left upper lobe (131/3). A few additional smaller tree-in-bud nodules are also seen in the lateral left upper lobe (for example 120/3). Ill-defined ground-glass nodularity is seen more superiorly in the left upper lobe that may have a tree-in-bud configuration (102/3). Mediastinum: Heart size is normal. No pericardial effusion. No mediastinal or hilar adenopathy by size criteria. Thoracic aorta and central pulmonary arteries are normal in size. Esophagus is normal in caliber. No hiatal hernia. Bones and chest wall: No suspicious bony lesions. No vertebral body compression fractures. No axillary or supraclavicular adenopathy by size criteria. Thyroid is unremarkable. Abdomen: Visualized upper abdominal solid organs appear normal. Upper abdominal bowel loops are normal in caliber. IMPRESSION: 1. At least moderate bilateral emphysematous changes, which have a lower lobe predominance. Recommend correlation for other causes of emphysema in addition to smoking. 2. Solid and ground-glass nodules in the lateral left upper lobe measuring up to 7 mm of a predominantly tree-in-bud configuration, suggesting an infectious or inflammatory etiology. Consider short-term follow-up CT in 3 months for further evaluation. 3. No significant lymphadenopathy or signs of metastatic disease within the chest. Dictated by: Michele Gonzales M.D. on 08/25/2021 at 8:42 Approved by: Michele Gonzales M.D. on 08/25/2021 at 9:00
[2021-08-25] MEDS: ALBUTEROL/IPRATROPIUM 3 ML AMPUL INH (08:42)
--- NOTE | 2021-08-25 09:32 | CM.DANOTE ---
DCP: Case received, EMR reviewed and met with patient. Introduced self and role. Was able to obtain information regarding patient's baseline activity level at home prior to hospitalization. DCP assessment completed with information currently available. Patient is a 66 year old female who admitted yesterday afternoon to the care of the hospitalist team. PCP: Dr. Rodriguez. Payer: confirmed: No Insurance. Patient came to the hospital via ambulance secondary to having increased shortness of breath. Patient does not have home oxygen, but has history of COPD. Patient is a current smoker. She was diagnosed with acute COPD. She is currently on oxygen. According to notes, patient was using her inhalers with little improvement. Met with patient in her room. She is alert and oriented, oxygen in place. She resides alone in [place], has a daughter named Colleen that lives near by. She is independent at baseline. She has no medical insurance, stated, she had [employer], but was paying a large amount for it. She has been paying for her medications with [employer]. She does have a primary care provider. Asked her if she does need home oxygen, if she can pay for this. She stated, would like to see how much it costs. Patient was given a joao application from admission counselors. P: DCP to continue to check in, and will see how she does here in the hospital, and if she will need home oxygen. Abril Thrasher RN/Back Hand Discharge Planning/Care Management CM Discharge Assessment Start: 08/25/21 09:31 Freq: Status: Active Protocol: Document 08/25/21 09:31 (Rec: 08/25/21 09:32 [id number]) Discharge Planning Assessment Assigned Molecular Biology Scientist Abril Thrasher RN/Back Hand Advance Directives? No History Provided By Patient,Medical Record Prior Living Arrangements House Household Members none Type of transporation used prior to Drives own vehicle admit Independent with ADL's Yes Is patient alert and oriented? Yes Needs Assistance With Home Chores / Shopping Caregiver for Another No Barriers to Discharge Yes Comment Patient has no medical insurance and may need home oxygen Discharge Plan Home Transportation Arrangement Family Referrals Initiated None needed Whiteboard Updated in Patient Room with Yes name and ext. # of Molecular Biology Scientist Review Status In Process Next Review Type Continued Stay Review
[2021-08-25] MEDS: KETOROLAC 30 MG/ML VIAL IV ×2 (09:40→11:32)
[2021-08-25] MEDS: ENOXAPARIN 30 MG/0.3 ML SYRINGE SUBCUT (09:40)
[2021-08-25] MEDS: predniSONE 20 MG TABLET 30 MG PO (09:40)
--- NOTE | 2021-08-25 11:48 | DIET.CONS ---
Dietary Consultation Note Admission Date: 08/24/2021 13:12 Assessment: 66 y/o F c PMH of GERD and COPD admitted with SOB. Pt with BMI of 14. States she has been losing weight since last year and etiology is unclear. States she has been working with her PCP on this. Denies any changes to appetite or PO. Does seem to go long periods of time without eating, ie no breakfast and >5 hours between meals and >12 hours overnight. Diet recall: B: skipped L: chips and tuna sandwich D: Pizza or tacos sn: prn if hungry Eats more when watching her grandchildren twice per week. Has been drinking low carb protein shake. Prefers Boost though. Has had COPD since 1990. COPD certainly can increase her kcal expenditure. Reports UBW of 145-150# last year, indicating -67# or46% loss over one year. Nutrition focused physical exam: severe temporal, clavicle, shoulder, and interosseous muscle wasting. Ht: 157.48 cm Wt: 35.38 kg BMI: 14.2 UBW: 65.9-68kg reported Last BM: 08/24/21 (08/24/21 20:42) MNA: David Score: 21 Diet: 08/24/21 Dinner Heart Healthy Diet Diet Modifications: Nutrition Percent Meal Consumed 10 08/25/21 09:24 Percent Meal Consumed 75% 08/24/21 17:50 Labs: RBC 4.21 X10^6/uL (4.0-5.2) 08/24/21 09:45 Hgb 13.4 g/dL (12.0-16.0) 08/24/21 09:45 Hct 40.5 % (36-46) 08/24/21 09:45 Creatinine 0.41 mg/dL (0.52-1.04) L 08/24/21 09:45 Lactate 0.6 mmol/L (0.7-2.1) L 08/24/21 09:45 Nutrition Diagnosis: Severe chronic protein calorie malnutrition r/t COPD, predicted inadequate PO, and perhaps some other unknown etiology aeb >20% wt loss in a year, physical signs of malnutrition, and BMI <16. Interventions: ONS BID, education on how to increase/maintain wt/muscle mass. EER: 4004-0200 kcals (30-35kcal/kg per BMI <20) 116-130g PRO (1.5-1.7g/kg per malnutrition) Monitoring/Evaluations: Will monitor PO and ONS tolerance while admitted q 3-4 days. Electronically Signed by: Fauzia Lowery 08/25/21 11:48 Clinical Dietitian [address] [id number]
--- NOTE | 2021-08-25 13:40 | PM.PN.1 ---
Subjective Subjective Interval history: The patient endorses a headache this morning. Symptoms appear consistent with cervical headache. Will give IV Toradol for now. The patient denies any respiratory issues overnight. Exam Vital Signs (past 8 hours): - 08/25/21 08:00 08/25/21 08:43 08/25/21 11:00 Temperature 98.7 F 99.6 F Pulse Rate 82 73 Respiratory Rate 19 21 Blood Pressure 120/64 111/66 Pulse Oximetry 97 96 96 Oxygen Delivery Method Nasal Cannula Oxygen Flow Rate 2 Narrative Exam Narrative: Const Other: Patient laying in bed comfortably upon my entering the room, in no apparent acute distress. Eyes Other: No scleral icterus appreciated. Neck Other: No carotid bruits appreciated. Resp Other: Scattered expiratory wheezes appreciated bilaterally. Cardio Other: RRR. S1 and S2 normal, with no extra heart sounds or murmurs appreciated. GI Other: Soft, non-distended, non-tender. Bowel sounds present. Skin Other: No grossly abnormal skin lesions noted. Extrem Other: Palpable dorsalis pedis pulses bilaterally. Objective Labs Result Diagrams: 08/24/21 09:45 08/24/21 09:45 [facility] Medical History COPD exacerbation Social History household members: none Smoking Status: Former smoker Assessment & Plan Assessment & Plan narrative: Assessment: 1. Acute exacerbation of COPD 2. Acute on chronic hypoxic respiratory failure 3. GERD 4. Hypertension 5. Nicotine dependency Plan: 1. IV Azithromycin and PO prednisone on-board. Will likely need home oxygen on discharge. Will discharge home on PO levofloxacin 750 mg daily to complete abx course. 2. The patient likely has a component of chronic hypoxia from long-standing COPD. Home RT oxygen evaluation. 3. Will start PO Protonix 20 mg bid, as Prilosec is not on formulary here. 4. Will likely start PO lisinopril 20 mg daily if elevated BP sustained. 5. Patient has 1.5 ppd smoking history since age 16. Will start nicotine patch inpatient. VTE prophylaxis: Lovenox 30 mg daily Time Spent With Patient Critical Care time: I spent a total of [] minutes of critical care time on this patient's care today; this time is exclusive of procedural time.
[2021-08-25] MEDS: AZITHROMYCIN 500 MG in DEXTROSE 5% IN WATER 250 ML IV (14:38)
[2021-08-25] MEDS: BUDESONIDE 0.5 MG/2 ML NEB INH (20:25)
[2021-08-26 03:28] VITALS: BP 110/69; PULSE 75; RESP 17; TEMP 36.4; O2SAT 94
[2021-08-26] MEDS: PANTOPRAZOLE DR 20 MG TABLET PO (06:11)
[2021-08-26 07:00] VITALS: O2SAT 93
[2021-08-26 07:35] VITALS: BP 139/67; PULSE 73; RESP 16; TEMP 36.6; O2SAT 95
[2021-08-26] MEDS: KETOROLAC 30 MG/ML VIAL IV (08:56)
[2021-08-26] MEDS: predniSONE 20 MG TABLET 30 MG PO (08:56)
[2021-08-26] MEDS: ENOXAPARIN 30 MG/0.3 ML SYRINGE SUBCUT (08:56)
[2021-08-26 09:42] VITALS: O2SAT 93
[2021-08-26] MEDS: BUDESONIDE 0.5 MG/2 ML NEB INH (09:42)
--- NOTE | 2021-08-26 10:46 | P.PN_ITS ---
Subjective Subjective Interval history: The patient endorses a persistent headache, although she had improvement yesterday with IV Toradol. Will give Tylenol with codeine this morning. CT chest not showing signs of lung malignancy. Exam Vital Signs (past 8 hours): - 08/26/21 03:28 08/26/21 07:35 08/26/21 09:42 Temperature 97.6 F 97.9 F Pulse Rate 75 73 Respiratory Rate 17 16 Blood Pressure 110/69 139/67 Pulse Oximetry 94 95 93 Oxygen Delivery Method Nasal Cannula Oxygen Flow Rate 1 Narrative Exam Narrative: Const Other: Patient laying in bed comfortably upon my entering the room, in no apparent acute distress Eyes Other: No scleral icterus appreciated Neck Other: No carotid bruits appreciated Resp Other: Lungs clear to auscultation bilaterally, although with poor air exchange Cardio Other: RRR. S1 and S2 normal, with no extra heart sounds or murmurs appreciated GI Other: Soft, non-distended, non-tender. Bowel sounds present Skin Other: No grossly abnormal skin lesions noted Extrem Other: Palpable dorsalis pedis pulses bilaterally Objective Labs Result Diagrams: 08/24/21 09:45 08/24/21 09:45 [facility] Medical History COPD exacerbation Social History household members: none Smoking Status: Former smoker Assessment & Plan Assessment & Plan narrative: Assessment: 1. Acute exacerbation of COPD 2. Acute on chronic hypoxic respiratory failure 3. Severe, chronic protein-calorie malnutrition 4. GERD 5. Hypertension 6. Nicotine dependency Plan: 1. IV Azithromycin and PO prednisone on-board. Will likely need home oxygen on discharge, as below. 2. The patient likely has a component of chronic hypoxia from long-standing COPD. Home RT evaluation: Oxygen saturation on room air at rest is 92%, with improvement to 95% on 1 liter oxygen. Oxygen saturation on room air with ambulation is 84%, and improves to 92% with 1 liter oxygen. 3. This is adversely affecting all the patient's other comorbidities. CT chest inpatient did not reveal evidence of lung malignancy. 4. Will start PO Protonix 20 mg bid, as Prilosec is not on formulary here. 5. Will likely start PO lisinopril 20 mg daily if elevated BP sustained. 6. Patient has 1.5 ppd smoking history since age 16. Will start nicotine patch inpatient. VTE prophylaxis: Lovenox 30 mg daily Time Spent With Patient Critical Care time: I spent a total of [] minutes of critical care time on this patient's care today; this time is exclusive of procedural time.
--- NOTE | 2021-08-26 12:42 | CM.DPNOTE ---
Discharge Planning Note: Patient medically stable and ready for discharge home today. 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 INSTRUCTIONAL TECHNOLOGY INSTRUCTOR provided patient with [facility] Application as patient informed she didn't know what had happened to her first provided copy. Patient is discharging home via POV with daughter providing transportation. No other discharge planning needs identified at this time. Jeronimo FIERRO
--- NOTE | 2021-08-26 13:21 | P.DS_ITS ---
History of Present Illness History of Present Illness Chief complaint: SOB, Dyspnea Narrative: 66yo female with a hx of GERD and COPD that presents with SOB. She reports this started last night. She was coming home from work, and arrived home once she started feeling SOB. This was not associated with exertion, and occurred even with rest. This was associated with a headache. The patient reports that this has been intermittent issue for a while now. She denies ever being on supplemental oxygen at home. She reports having issues with insurance covering supplemental oxygen in the past. The patient does endorse being on a PO prednisone taper as ordered by her PCP, along with recently finishing 10 days of Augmentin bid. The patient endorses smoking tobacco since the age of 16, approximately 1.5 ppd. She denies EtOH or illicit drug use. She endorses being up-to-date with her cancer screening, i.e. colonoscopy, mammogram, etc. She denies fever/chills, night sweats, hx of VTE, CP, palpitations, peripheral edema, recent travel. She denies any PSH. Family hx is positive for mother and father with DM II, father with heart issues and mother with breast cancer. The patient reports taking her medications, including her inhalers, consistently. She denies any new meds. She has a PCP that she sees regularly. She works as a care provider for intellectually disabled adults. Discharge Providers Provider Date of admission: 08/24/21 13:12 Discharge Date: 08/26/21 Primary care physician: Leoncio Rodriguez MD Consults: 08/25/21 10:09 Consult to Dietitian, Adult Routine Comment: Reason For Exam: due to patient being underweight Discharge provider: Niyah Savage MD Summary Hospital Course Discharge Diagnosis: 1. Acute exacerbation of COPD 2. Acute on chronic hypoxic respiratory failure 3. Severe, chronic protein-calorie malnutrition 4. GERD 5. Hypertension 6. Nicotine dependency Plan: 1. IV Azithromycin and PO prednisone inpatient. Will need home oxygen on discharge, as below. Will discharge on PO levofloxacin 750 mg daily for 4 more days of abx tx, along with PO prednisone taper at home as PCP arranged. 2. The patient likely has a component of chronic hypoxia from long-standing COPD. Home RT evaluation: Oxygen saturation on room air at rest is 92%, with improvement to 95% on 1 liter oxygen. Oxygen saturation on room air with ambulation is 84%, and improves to 92% with 1 liter oxygen. 3. This is adversely affecting all the patient's other comorbidities. CT chest inpatient did not reveal evidence of lung malignancy. 4. Will start PO Protonix 20 mg bid, as Prilosec is not on formulary here. 5. Did not require initiation of anti-HTN meds inpatient. 6. Patient has 1.5 ppd smoking history since age 16. Nicotine patch inpatient. Exam Vital Signs (past 8 hours): - 08/26/21 07:00 08/26/21 07:35 08/26/21 09:42 Temperature 97.9 F Pulse Rate 73 Respiratory Rate 16 Blood Pressure 139/67 Pulse Oximetry 93 95 93 Oxygen Delivery Method Nasal Cannula Oxygen Flow Rate 1 Objective Labs Result Diagrams: 08/24/21 09:45 08/24/21 09:45 [facility] Medical History COPD exacerbation Social History household members: none Smoking Status: Former smoker Discharge Assessment & Plan Assessment and Plan Assessment: 1. Acute exacerbation of COPD 2. Acute on chronic hypoxic respiratory failure 3. Severe, chronic protein-calorie malnutrition 4. GERD 5. Hypertension 6. Nicotine dependency Plan: 1. IV Azithromycin and PO prednisone inpatient. Will need home oxygen on discharge, as below. Will discharge on PO levofloxacin 750 mg daily for 4 more days of abx tx, along with PO prednisone taper at home as PCP arranged. 2. The patient likely has a component of chronic hypoxia from long-standing COPD. Home RT evaluation: Oxygen saturation on room air at rest is 92%, with improvement to 95% on 1 liter oxygen. Oxygen saturation on room air with ambulation is 84%, and improves to 92% with 1 liter oxygen. 3. This is adversely affecting all the patient's other comorbidities. CT chest inpatient did not reveal evidence of lung malignancy. 4. Will start PO Protonix 20 mg bid, as Prilosec is not on formulary here. 5. Did not require initiation of anti-HTN meds inpatient. 6. Patient has 1.5 ppd smoking history since age 16. Nicotine patch inpatient. Discharge Plan Discharge Plan Patient Disposition: Home Discharge orders & Medications Prescriptions: New levofloxacin 750 mg tablet 750 mg PO DAILY 4 Days Qty: 4 0RF Continued prednisone 20 MG tablet 40 mg PO [facility] 4 Days Qty: 0 0RF omeprazole 40 mg capsule,delayed release(DR/EC) 40 mg PO BID Qty: 60 0RF Discontinued doxycycline hyclate 100 MG capsule 100 mg PO Q12H Qty: 20 0RF Follow up/Referrals: Leoncio Rodriguez MD [Primary Care Provider] - Visit Report/Discharge Packet Instructions: DI for Chronic Obstructive Pulmonary Disease Stand Alone Forms: Against Medical Advice Discharge Data Primary Care Provider: Leoncio Rodriguez
[2021-08-26 13:45] VITALS: BP 131/69; PULSE 80; RESP 16; TEMP 36.9; O2SAT 92
--- NOTE | 2021-08-26 16:39 | PC.NURSE ---
Pt discharged at 1615, escorted off floor in wheelchair, accompanied by hospital staff and daughter. IV removed, discharge teaching provided including importance of follow up appointments, new medications, and oxygen use at home. Pt left on home oxygen and with all belongings.
== END 2021-08-26 16:30 | disposition home or self-care (01) | DRG 190 ==
LOC: ED 13:07 → AC 13:13
PROVIDERS: Admitting Provider Student in an Organized Health Care Education/Training Program; Emergency Provider Emergency Medicine; PCP Family Medicine; Referring Provider Emergency Medicine; Visit Provider Student in an Organized Health Care Education/Training Program
DX: J44.1 Chronic obstructive pulmonary disease with (acute) exacerbation (principal); J96.21 Acute and chronic respiratory failure with hypoxia; E43 Unspecified severe protein-calorie malnutrition; Z68.1 Body mass index [BMI] 19.9 or less, adult; K21.9 Gastro-esophageal reflux disease without esophagitis; G44.86 Cervicogenic headache; F17.210 Nicotine dependence, cigarettes, uncomplicated; Z20.822 Contact with and (suspected) exposure to COVID-19
CPT/HCPCS: 71045; 71260; 80053; 83605; 85025; 87635; 93005; 94618; 94640; 94762; 96365; 96375; 99284; 99285; C9803; J1650; J1885; J2930; J7613

== ENCOUNTER 2022-04-07 16:19 | Inpatient (IN) | payer SELFPAY ==
[2021-08-24 15:54] VITALS: BMI 14.2
[2022-04-07] VITALS (17 sets, daily range): BP systolic 116–157; BP diastolic 57–89; PULSE 96–118; RESP 20–30; TEMP 36.6–37.3; O2SAT 91–98; BMI 17.4; BMI 15.7
--- NOTE | 2022-04-07 17:08 | DI.RAD.S_ITS ---
PROCEDURE: XR CHEST 2V INDICATIONS: shortness of breath TECHNIQUE: 2 views of the chest were acquired. COMPARISON: [facility], CT, CT CHEST W CON, 08/25/2021, 8:21. [facility], CR, XR CHEST 2V, 01/30/2020, 16:26. [facility], CR, XR CHEST 1V, 08/24/2021, 9:48. FINDINGS: Surgical changes and devices: None. Lungs and pleura: Lungs are clear. No pleural effusions or pneumothorax. The lungs are hyperexpanded, with flattening of the hemidiaphragms seen. Mediastinum: The cardiac contours are within normal limits. The aorta demonstrates calcification and tortuosity. Bones and chest wall: No suspicious bony abnormalities. Accentuated thoracic kyphosis is seen. Age-appropriate bony degenerative changes are seen. Soft tissues appear unremarkable. IMPRESSION: Hyperexpanded lungs, without an acute cardiopulmonary process identified. Dictated by: Flavio Esparza M.D. on 04/07/2022 at 16:21 Approved by: Flavio Esparza M.D. on 04/07/2022 at 16:22
[2022-04-07 17:58] LABS: Influenza A - CEPHEID Flu A NEGATIVE (NEGATIVE); Influenza B - CEPHEID Flu B NEGATIVE (NEGATIVE)
[2022-04-07 18:09] LABS: COVID-19 CEPHEID 4-PLEX PCR Negative (Negative)
[2022-04-07 19:27] LABS: Lactate (Lactic Acid) 1.3 mmol/L (0.7-2.1)
[2022-04-07 19:28] LABS: Alanine Aminotransferase 24 IU/L (<35); Albumin 4.5 g/dL (3.5-5.0); Albumin Globulin Ratio 1.1 (1.0-2.8); Alkaline Phosphatase 101 U/L (38-126); Aspartate Aminotransferase 27 IU/L (14-36); BUN Creatinine Ratio 40.7 (6-22); Bilirubin Total 0.7 mg/dL (0.2-1.3); Blood Urea Nitrogen 22 mg/dL (7-17); Calcium 9.7 mg/dL (8.4-10.2); Carbon Dioxide 30 mmol/L (22-32); Chloride 96 mmol/L (98-107); Estimated Glomerular Filt Rate > 60 mL/min (>60); Globulin 4.2 g/dL (1.7-4.1); Glucose 129 mg/dL (80-110); HEMOLYSIS < 15 (0-50); Potassium 4.5 mmol/L (3.4-5.1); Sodium 137 mmol/L (137-145); Total Protein 8.7 g/dL (6.3-8.2)
[2022-04-07 19:33] LABS: Add Manual Diff / Slide Review NO; Basophils Absolute Auto 0 /uL (0-100); Basophils Percent Auto 0.2 % (0-2); Eosinophils Absolute Auto 0 /uL (0-450); Eosinophils Percent Auto 0.2 % (2-4); Hematocrit 40.1 % (36-46); Hemoglobin 13.3 g/dL (12.0-16.0); Lymphocytes Absolute Auto 600 /uL (1100-4500); Lymphocytes Percent Auto 3.3 % (25-40); Mean Corpuscular HGB Conc 33.2 % (30-36); Mean Corpuscular Hemoglobin 30.8 PG (26-34); Mean Corpuscular Volume 92.8 fL (80-100); Monocytes Absolute Auto 2600 /uL (0-900); Monocytes Percent Auto 13.6 % (3-14); Neutrophils Absolute Auto 16000 /uL (1500-7000); Neutrophils Percent Auto 82.7 % (50-75); Platelet Count 347 X10^3/uL (150-400); Red Blood Cell Count 4.32 X10^6/uL (4.0-5.2); Red Cell Distribution Width 13.1 % (11.6-14.8); White Blood Cell Count 19.3 X10^3/uL (4.5-11.0)
--- NOTE | 2022-04-07 19:45 | DI.CT.S_ITS ---
PROCEDURE: CT ANGIO CHEST PE PROTOCOL INDICATIONS: SHORT OF BREATH TECHNIQUE: After the administration of intravenous contrast, 2 mm thick sections acquired from the pulmonary apices to the posterior costophrenic angles. 3-dimensional maximum intensity projection (MIP) coronal and sagittal reformats were then acquired through the thorax. For radiation dose reduction, the following was used: automated exposure control, adjustment of mA and/or kV according to patient size. COMPARISON: [facility], CT, CT CHEST W CON, 08/25/2021, 8:21. FINDINGS: Image quality: Excellent. Pulmonary arteries: Pulmonary arteries are normal in size, and demonstrate no intraluminal filling defects to suggest central pulmonary embolism. Lower Neck: No lymphadenopathy by size criteria. Thyroid: Visualized thyroid demonstrates no discrete nodules. Axillae: No lymphadenopathy by size criteria. Chest Wall: Unremarkable. Bones: Visualized osseous structures demonstrate no suspicious lesions. Lungs and Airways: There are severe centrilobular emphysematous changes. Multiple bilateral clustered irregular nodules are demonstrated involving all lobes but with a basilar predominance. No focal consolidation. The trachea and central airways are patent. There is mild perihilar bronchial wall thickening. Pleura: No pneumothorax or pleural effusions. Heart: Heart size is normal. No pericardial effusion. Thoracic Vessels: The thoracic aorta is normal in size. Mediastinum and Joann: No lymphadenopathy by size criteria. Esophagus: No wall thickening. No hiatal hernia. Abdomen: Visualized upper abdominal solid organs appear normal in the early arterial phase of enhancement. IMPRESSION: 1. No evidence of pulmonary embolism. 2. Multiple bilateral clustered irregular pulmonary nodules with a basilar predominance. Findings most likely represent atypical infection such as from mycobacterial or fungal etiologies. Recommend a short-term follow-up following appropriate therapy in 3 months to demonstrate resolution. 3. Severe centrilobular emphysematous changes. Dictated by: Eyad Koch M.D. on 04/07/2022 at 20:57 Approved by: Eyad Koch M.D. on 04/07/2022 at 21:02
--- NOTE | 2022-04-07 19:46 | ED.SOB ---
HPI - SOB/Dyspnea General Chief Complaint: Upper Respiratory Symptoms Stated Complaint: difficulty breathing Time Seen by Provider: 04/07/22 19:39 Mode of arrival: Wheelchair History of Present Illness HPI Narrative: Patient here with daughter. Complains of shortness breath and cough for the past 2 days. Patient is on 2 L nasal cannula continuously at home. Requiring 3 L at home now. Last breathing treatment earlier today. Not improving. Has not been on steroids recently. Last admission for COPD exacerbation July of this year. Has had dry cough. No known sick contacts. Has chills but no fever. White cell count noted. Related Data Home Medications Medication Instructions Recorded Confirmed budesonide-formoterol HFA 160 2 puff inhalation BID 04/07/22 04/07/22 mcg-4.5 mcg/actuation aerosol inhaler Previous Rx's Medication Instructions Recorded prednisone 20 mg tablet 40 mg PO [facility] 4 days #0 tabs 09/03/17 Allergies Allergy/AdvReac Type Severity Reaction Status Date / Time No Known Drug Allergies Allergy Verified 11/28/19 10:38 Review of Systems Review of Systems Narrative: GENERAL: Positive chills, negative fatigue, malaise, fever, sweats. HEENT: Denies sinus pain, ear pain, sore throat RESPIRATORY: Positive dyspnea, cough CARDIOVASCULAR: Denies chest pain, palpitations GASTROINTESTINAL: Denies nausea, vomiting, abdominal pain : Denies dysuria, frequency, hematuria MUSCULOSKELETAL: denies muscle or bony pain SKIN: Denies rash, skin lesions NEUROLOGIC: Denies weakness, numbness ROS Unobtainable: All systems reviewed & are unremarkable except as noted in HPI and below Patient History Medical History (Updated 04/07/22 @ 23:32 by KRISTOFER Conley) BMI less than 19,adult Chronic respiratory failure with hypoxia, on home O2 therapy COPD exacerbation Emphysema lung Tobacco abuse Family History (Updated 04/07/22 @ 23:31 by KRISTOFER Conley) Father Diabetes mellitus Congestive heart failure Mother Diabetes mellitus Social History household members: none Smoking Status: Former smoker alcohol intake: current Smoking Status: Former smoker alcohol intake frequency: holidays/special occasions only Substance Use Type: does not use Exam Narrative Exam Narrative: GENERAL: in no distress, not toxic moderate dyspneic HEAD: Normocephalic. EYES: Pupils equal round No scleral icterus. ENT: Mucous membranes moist. NECK: Trachea midline. CARDIOVASCULAR: Regular rate and rhythm without murmurs RESPIRATORY: Speaking short sentences. On nasal cannula. Diminished lung sounds bilaterally. No rhonchi or rales. GASTROINTESTINAL: Abdomen soft, non-tender EXTREMITIES: No gross deformities. BACK: No flank tenderness. NEURO: AOx4. SKIN: Warm and dry PSYCH: Not anxious, is cooperative Initial Vital Signs Initial Vital Signs: Vital Signs Temperature 97.9 F 04/07/22 17:02 Pulse Rate 107 H 04/07/22 17:02 Respiratory Rate 22 04/07/22 17:02 Blood Pressure 145/89 H 04/07/22 17:02 Pulse Oximetry 91 04/07/22 17:02 Oxygen Delivery Method 04/07/22 17:02 Oxygen Flow Rate 2 04/07/22 17:02 Course Course Course Narrative: No new issues during course of stay Decision to Admit Date: 04/07/22 Decision to Admit time: 19:48 Orders Ordered: ED Orders 04/07/22 19:00 Complete Blood Count AUTO DIFF Stat Comprehensive Metabolic Panel Stat Lactate (Lactic Acid) Stat Procalcitonin Stat 04/07/22 19:23 EKG-12 Lead Stat 04/07/22 19:45 CT angio chest PE protocol Stat 04/07/22 22:12 Blood Culture Stat Acetaminophen (Acetaminophen 325 Mg Tablet) 650 mg PO Q6H PRN PRN Reason: Fever/Mild Pain (1-3) Last Admin: 04/08/22 00:56 Dose: 650 mg Documented By: Albuterol/Ipratropium (Albuterol/Ipratropium 3 Ml Ampul) 3 ml INH [id number] [facility] Last Admin: 04/07/22 23:43 Dose: Not Given Documented By: LEN Enoxaparin Sodium (Enoxaparin 40 Mg/0.4 Ml Syringe) 40 mg SUBCUT DAILY [facility] Piperacillin Sod/Tazobactam (Sod 3.375 gm/ Sodium Chloride) 100 mls @ 25 mls/hr IV Q8H [facility] Stop: 04/13/22 05:59 Vancomycin HCl (Vancomycin) 1,000 mg in 200 mls @ 150 mls/hr IV NOW [facility] Last Admin: 04/08/22 01:49 Dose: 150 mls/hr Documented By: Vancomycin HCl 500 mg/ Sodium (Chloride) 100 mls @ 100 mls/hr IV Q24H [facility] Levofloxacin (Levofloxacin 250 Mg Tablet) 750 mg PO DAILY [facility] Stop: 04/13/22 08:59 Naloxone HCl (Naloxone 0.4 Mg/Ml Vial) 0.2 mg IV Q2MIN PRN PRN Reason: Opiate Reversal Prednisone (Prednisone 20 Mg Tablet) 40 mg PO DAILY [facility] Discontinued Medications Acetaminophen (Acetaminophen 325 Mg Tablet) 650 mg PO NOW ONE Stop: 04/07/22 22:37 Last Admin: 04/07/22 22:40 Dose: 650 mg Documented By: YUNG Albuterol/Ipratropium (Albuterol/Ipratropium 3 Ml Ampul) 3 ml INH NOW ONE Stop: 04/07/22 19:45 Last Admin: 04/07/22 19:48 Dose: 3 ml Documented By: LEN Albuterol/Ipratropium (Albuterol/Ipratropium 3 Ml Ampul) 3 ml INH NOW ONE Stop: 04/07/22 20:32 Last Admin: 04/07/22 19:59 Dose: 3 ml Documented By: LEN Albuterol/Ipratropium (Albuterol/Ipratropium 3 Ml Ampul) 3 ml INH NOW ONE Stop: 04/07/22 20:32 Last Admin: 04/07/22 19:59 Dose: 3 ml Documented By: LEN Ceftriaxone Sodium 2,000 mg/ (Sodium Chloride) 100 mls @ 200 mls/hr IV NOW ONE Stop: 04/07/22 21:56 Last Infusion: 04/07/22 22:41 Dose: 0 mls/hr Documented By: Admin: 04/07/22 22:11 Dose: 200 mls/hr Documented By: DINORAH Azithromycin 500 mg/ Dextrose 250 mls @ 250 mls/hr IV NOW ONE Stop: 04/07/22 21:56 Last Admin: 04/07/22 22:41 Dose: 250 mls/hr Documented By: YUNG Piperacillin Sod/Tazobactam (Sod 4.5 gm/ Sodium Chloride) 100 mls @ 200 mls/hr IV NOW ONE Stop: 04/07/22 22:29 Last Admin: 04/08/22 00:55 Dose: 200 mls/hr Documented By: Methylprednisolone (Methylprednisolone 125 Mg/2 Ml Vial) 125 mg IV NOW ONE Stop: 04/07/22 19:46 Last Admin: 04/07/22 19:50 Dose: 125 mg Documented By: DINORAH Vancomycin HCl (Vancomycin Per Pharmacy) 1 request MISC NOW ONE Stop: 04/07/22 22:29 Reevaluation(s) Reevaluation #1: pt feeling better after breathing treatments. Breath sounds feel better. Reviewed results with patient. Agrees for admit. Time: 21:59 Consultations Consultation #1: Spoke with hospitalist, Natalie Ayala, will admit patient Time: 22:24 Vital Signs Vital signs: Vital Signs - 8 hr 04/07/22 19:48 04/07/22 18:51 04/07/22 18:54 Pulse Rate 105 H 114 H Respiratory Rate 30 H 22 Blood Pressure 147/67 H Pulse Oximetry 97 94 Oxygen Delivery Method Nasal Cannula Oxygen Flow Rate 3 Fraction of Inspired Oxygen 32 04/07/22 18:54 04/07/22 19:00 04/07/22 19:02 Pulse Rate 111 H 113 H 110 H Respiratory Rate 21 26 H 24 Blood Pressure Pulse Oximetry 96 97 95 Oxygen Delivery Method Oxygen Flow Rate Fraction of Inspired Oxygen 04/07/22 19:02 04/07/22 19:30 04/07/22 19:30 Pulse Rate 113 H Respiratory Rate 25 H Blood Pressure 151/70 H 157/77 H Pulse Oximetry 92 Oxygen Delivery Method Oxygen Flow Rate Fraction of Inspired Oxygen 04/07/22 20:00 04/07/22 20:00 04/07/22 20:47 Pulse Rate 107 H 108 H Respiratory Rate 25 H 28 H Blood Pressure 137/66 Pulse Oximetry 97 96 Oxygen Delivery Method Nasal Cannula Oxygen Flow Rate 3 Fraction of Inspired Oxygen 32 04/07/22 20:28 04/07/22 20:28 04/07/22 20:30 Pulse Rate 118 H Respiratory Rate 23 Blood Pressure 133/66 134/63 Pulse Oximetry 97 Oxygen Delivery Method Oxygen Flow Rate Fraction of Inspired Oxygen 04/07/22 20:30 04/07/22 21:00 04/07/22 21:00 Pulse Rate 117 H 115 H Respiratory Rate 24 23 Blood Pressure 128/67 Pulse Oximetry 98 97 Oxygen Delivery Method Oxygen Flow Rate Fraction of Inspired Oxygen 04/07/22 21:30 04/07/22 21:30 04/07/22 22:00 Pulse Rate 109 H Respiratory Rate 26 H Blood Pressure 116/57 L 123/68 Pulse Oximetry 95 Oxygen Delivery Method Oxygen Flow Rate Fraction of Inspired Oxygen 04/07/22 22:00 Pulse Rate 103 H Respiratory Rate 26 H Blood Pressure Pulse Oximetry 95 Oxygen Delivery Method Oxygen Flow Rate Fraction of Inspired Oxygen MDM - SOB/Dyspnea Differential Diagnosis Differential diagnosis: Likely acute exacerbation of chronic obstructive airways disease, community acquired pneumonia and pulmonary embolism Lab Data Result diagrams: 04/07/22 19:00 04/07/22 19:00 Labs: Lab Results 04/07/22 04/07/22 04/07/22 Range/Units 17:08 19:00 19:00 WBC 19.3 H (4.5-11.0) X10^3/uL RBC 4.32 (4.0-5.2) X10^6/uL Hgb 13.3 (12.0-16.0) g/dL Hct 40.1 (36-46) % MCV 92.8 (80-100) fL MCH 30.8 (26-34) PG MCHC 33.2 (30-36) % RDW 13.1 (11.6-14.8) % Plt Count 347 (150-400) X10^3/uL Neut % (Auto) 82.7 H (50-75) % Lymph % (Auto) 3.3 L (25-40) % Creek % (Auto) 13.6 (3-14) % Eos % (Auto) 0.2 L (2-4) % Baso % (Auto) 0.2 (0-2) % Neut # (Auto) 45043 H (3674-4406) /uL Lymph # (Auto) 600 L (6558-6100) /uL Creek # (Auto) 2600 H (0-900) /uL Eos # (Auto) 0 (0-450) /uL Baso # (Auto) 0 (0-100) /uL Sodium 137 (137-145) mmol/L Potassium 4.5 (3.4-5.1) mmol/L Chloride 96 L (98-107) mmol/L Carbon Dioxide 30 (22-32) mmol/L BUN 22 H (7-17) mg/dL Creatinine 0.54 (0.52-1.04) mg/dL Estimated GFR > 60 (>60) mL/min BUN/Creatinine Ratio 40.7 H (6-22) Glucose 129 H (80-110) mg/dL Lactate (0.7-2.1) mmol/L Calcium 9.7 (8.4-10.2) mg/dL Magnesium (1.6-2.3) mg/dL Total Bilirubin 0.7 (0.2-1.3) mg/dL AST 27 (14-36) IU/L ALT 24 (<35) IU/L Alkaline Phosphatase 101 (38-126) U/L C-Reactive Protein (<1.0) mg/dL NT-Pro-B Natriuret Pep (<125) pg/mL Total Protein 8.7 H (6.3-8.2) g/dL Albumin 4.5 (3.5-5.0) g/dL Globulin 4.2 H (1.7-4.1) g/dL Albumin/Globulin Ratio 1.1 (1.0-2.8) Procalcitonin (<0.5) ng/mL SARS-CoV-2 (PCR) Negative (Negative) Influenza A (RT-PCR) Flu a negative (NEGATIVE) Influenza B (RT-PCR) Flu b negative (NEGATIVE) 04/07/22 04/07/22 04/07/22 Range/Units 19:00 19:00 19:00 WBC (4.5-11.0) X10^3/uL RBC (4.0-5.2) X10^6/uL Hgb (12.0-16.0) g/dL Hct (36-46) % MCV (80-100) fL MCH (26-34) PG MCHC (30-36) % RDW (11.6-14.8) % Plt Count (150-400) X10^3/uL Neut % (Auto) (50-75) % Lymph % (Auto) (25-40) % Creek % (Auto) (3-14) % Eos % (Auto) (2-4) % Baso % (Auto) (0-2) % Neut # (Auto) (1245-7151) /uL Lymph # (Auto) (3419-9745) /uL Creek # (Auto) (0-900) /uL Eos # (Auto) (0-450) /uL Baso # (Auto) (0-100) /uL Sodium (137-145) mmol/L Potassium (3.4-5.1) mmol/L Chloride (98-107) mmol/L Carbon Dioxide (22-32) mmol/L BUN (7-17) mg/dL Creatinine (0.52-1.04) mg/dL Estimated GFR (>60) mL/min BUN/Creatinine Ratio (6-22) Glucose (80-110) mg/dL Lactate 1.3 (0.7-2.1) mmol/L Calcium (8.4-10.2) mg/dL Magnesium 1.9 (1.6-2.3) mg/dL Total Bilirubin (0.2-1.3) mg/dL AST (14-36) IU/L ALT (<35) IU/L Alkaline Phosphatase (38-126) U/L C-Reactive Protein 7.8 H (<1.0) mg/dL NT-Pro-B Natriuret Pep 339 H (<125) pg/mL Total Protein (6.3-8.2) g/dL Albumin (3.5-5.0) g/dL Globulin (1.7-4.1) g/dL Albumin/Globulin Ratio (1.0-2.8) Procalcitonin 0.13 (<0.5) ng/mL SARS-CoV-2 (PCR) (Negative) Influenza A (RT-PCR) (NEGATIVE) Influenza B (RT-PCR) (NEGATIVE) Imaging Data Chest x-ray: Radiologist's Impression: [address] [address] XRay Report Signed Patient: Apolonia Barba MR#: [id number] : 1955 Acct:[id number] Age/Sex: 66 / F Date of Service: 04/07/22 Loc: ED Accession Number: [id number] ?? Procedure: XR chest 2V Ordering Provider: Colleen Coelho D.O. PROCEDURE:? XR CHEST 2V ? INDICATIONS:? shortness of breath ? TECHNIQUE:? 2 views of the chest were acquired.? ? COMPARISON:? [facility], CT, CT CHEST W CON, 08/25/2021, 8:21.? [facility], CR, XR CHEST 2V, 01/30/2020, 16:26.? [facility], CR, XR CHEST 1V, 08/24/2021, 9:48. ? FINDINGS:? ? Surgical changes and devices:? None.? ? Lungs and pleura:? Lungs are clear.? No pleural effusions or pneumothorax.? The lungs are hyperexpanded, with flattening of the hemidiaphragms seen. ? Mediastinum:? The cardiac contours are within normal limits. The aorta demonstrates calcification and tortuosity. ? Bones and chest wall:? No suspicious bony abnormalities.? Accentuated thoracic kyphosis is seen.? Age-appropriate bony degenerative changes are seen. ? ? Soft tissues appear unremarkable.? ? ? IMPRESSION:? ? Hyperexpanded lungs, without an acute cardiopulmonary process identified. ? ? Dictated by: Flavio Esparza M.D. on 04/07/2022 at 16:21 ? ? Approved by: Flavio Esparza M.D. on 04/07/2022 at 16:22 ? CT scan - chest: Radiologist's Impression: [place] [address] CT Scan Report Signed Patient: Apolonia Barba MR#: [id number] : 1955 Acct:[id number] Age/Sex: 66 / F Date of Service: 04/07/22 Loc: ED Accession Number: [id number] ?? Procedure: CT angio chest PE protocol Ordering Provider: Ariel Toussaint MD PROCEDURE:? CT ANGIO CHEST PE PROTOCOL ? INDICATIONS:? SHORT OF BREATH ? TECHNIQUE:? After the administration of intravenous contrast, 2 mm thick sections acquired from the pulmonary apices to the posterior costophrenic angles.? 3-dimensional maximum intensity projection (MIP) coronal and sagittal reformats were then acquired through the thorax.? For radiation dose reduction, the following was used:? automated exposure control, adjustment of mA and/or kV according to patient size.? ? COMPARISON:? [facility], CT, CT CHEST W CON, 08/25/2021, 8:21. ? FINDINGS:? Image quality:? Excellent.? ? Pulmonary arteries:? Pulmonary arteries are normal in size, and demonstrate no intraluminal filling defects to suggest central pulmonary embolism.? ? Lower Neck: No lymphadenopathy by size criteria. Thyroid:? Visualized thyroid demonstrates no discrete nodules. Axillae: No lymphadenopathy by size criteria. Chest Wall:? Unremarkable.? Bones: Visualized osseous structures demonstrate no suspicious lesions. ? Lungs and Airways:? There are severe centrilobular emphysematous changes.? Multiple bilateral clustered irregular nodules are demonstrated involving all lobes but with a basilar predominance.? No focal consolidation.? The trachea and central airways are patent.? There is mild perihilar bronchial wall thickening. Pleura: No pneumothorax or pleural effusions.? ? Heart: Heart size is normal.? No pericardial effusion. Thoracic Vessels: The thoracic aorta is normal in size.? Mediastinum and Joann: No lymphadenopathy by size criteria. Esophagus: No wall thickening. No hiatal hernia. ? Abdomen:? Visualized upper abdominal solid organs appear normal in the early arterial phase of enhancement.? ? IMPRESSION:? ? 1. No evidence of pulmonary embolism. ? 2. Multiple bilateral clustered irregular pulmonary nodules with a basilar predominance.? Findings most likely represent atypical infection such as from mycobacterial or fungal etiologies.? Recommend a short-term follow-up following appropriate therapy in 3 months to demonstrate resolution. ? 3. Severe centrilobular emphysematous changes. ? ? Dictated by: Eyad Koch M.D. on 04/07/2022 at 20:57 ? ? Approved by: Eyad Koch M.D. on 04/07/2022 at 21:02 ? ECG Data Interpretation: Sinus tachycardia rate [address] elevation or depression MDM Narrative Medical decision making narrative: Appropriate for admit COPD exacerbation/community-acquired pneumonia. Patient feeling better after breathing treatment. Exam otherwise reassuring. Spoke with hospice and agree for admit. Patient and family agree for admit Discharge Plan Departure Patient Disposition: Admitted As Inpatient Clinical Impression: COPD exacerbation, Atypical pneumonia Admit Date/Time: 04/07/22 22:24 Admit Provider: Natalie Ayala
[2022-04-07] MEDS: ALBUTEROL/IPRATROPIUM 3 ML AMPUL INH ×3 (19:48→19:59)
[2022-04-07] MEDS: methylPREDNISolone 125 MG/2 ML VIAL IV (19:50)
[2022-04-07] MEDS: cefTRIAXone 2,000 MG in SODIUM CHLORIDE 0.9% 100 ML 200 MG IV (22:11)
[2022-04-07] MEDS: ACETAMINOPHEN 325 MG TABLET 650 MG PO (22:40)
[2022-04-07] MEDS: AZITHROMYCIN 500 MG in DEXTROSE 5% IN WATER 250 ML 250 MG IV (22:41)
--- NOTE | 2022-04-07 23:01 | P.HP_ITS ---
History of Present Illness History of Present Illness Date Patient Seen: 04/07/22 Time Patient Seen: 23:01 Chief complaint: difficulty breathing Narrative: Apolonia Barba is a 66 yr old female with a history of 1.5 pack a day 40+ year smoking history, and COPD, with recurrent ED visits for COPD, last July of 2021 required hospitalization for COPD exacerbation, was discharged home on O2 for the 1st time. She presents to the ED today complaining of shortness breath, escalating oxygen demand, and cough for the past 2 days.? Patient is on 2 L nasal cannula mostly at night at home (as she was trying to wean off oxygen) notes that it appears when she is off her oxygen for too long she developed severe headache, escalating demand over the past 2 days requiring 3 L at home now. Patient notes that she is been without insurance and been unable to obtain Symbicort, Xopenex and other respiratory medications. She does have nebulizer at home and friends have given her albuterol to use in her nebulizer. Patient has been fully vaccinated against COVID and flu vaccine. In the ED patient had mildly elevated blood pressure 157/77, 151/70, tachycardic 107-114, tachypneic 22-30 respiratory rate, O2 saturations 90-91% on 2 L nasal cannula. Patient received 3 nebulizing treatments, a dose of IV methylprednisone, a dose of azithromycin and Rocephin. Patient states that shortness of breath is improved, cough continues dry improved, positive headache improved, positive urinary frequency, and occansional bowel incontinence, no nasal congestion, ear, eye discomfort, noted costochondritis diffusely bilaterally secondary to coughing, patient finds that eating is extremely fatiguing and or drinking, and relates this to her decreased oral intake. Patient denies cardiac chest pain, fever, body aches, chills, abdominal pain, nausea, vomiting, diarrhea, constipation, hematemesis, urinary dysuria, hematuria, melena blood in stool, skin wounds or infections, recent travel, exposure to illness, no recent steroid use, no recent antibiotic use, denies recent illness injury or trauma. On admit temp 97.9? BP 137/66 tachycardic 108 tachypneic 28 O2 saturation 96% on 3 L nasal cannula. Patient has a white count 19.3 with a moderate left shift neutrophils 16,000, mono 2600. Chemistry and liver panel are predominantly unremarkable chloride 96 BUN 22, BUN creatinine ratio is elevated at 40.7 likely representing dehydration, lactate is within normal limits, procalcitonin ordered, total protein 8.7, globin 4.2. CXR: Hyperexpansion without acute cardiopulmonary processes. Chest CTA is negative for PE, Multiple bilateral clustered irregular pulmonary nodules with a basilar predominance-findings most likely represent atypical infection, severe centrilobular emphysematous changes. EKG sinus tachycardia with a rate of [address] changes. Patient admitted for acute on chronic respiratory failure with hypoxia secondary to COPD exacerbation and atypical community-acquired pneumonia. Patient History Medical History (Updated 04/07/22 @ 23:32 by KRISTOFER Conley) BMI less than 19,adult Chronic respiratory failure with hypoxia, on home O2 therapy COPD exacerbation Emphysema lung Tobacco abuse Comment: No surgical History Family & Social History Family History (Updated 04/07/22 @ 23:31 by KRISTOFER Conley) Father Diabetes mellitus Congestive heart failure Mother Diabetes mellitus Social History: household members none Safety & Behavioral: Feels Safe in Current Yes Environment Been Physically Hurt or No Threatened By a Person Tobacco & Substance use: Tobacco type cigarettes 1.5ppd -since age of 16yrs Smoking Status alcohol intake frequency holiday/special occasion Substance Use Type does not use Meds Home Medications and Allergies Home Medications Medication Instructions Recorded Confirmed Type prednisone 20 mg tablet 40 mg PO [facility] 4 days #0 tabs 09/03/17 Rx budesonide-formoterol HFA 160 2 puff inhalation BID 04/07/22 04/07/22 History mcg-4.5 mcg/actuation aerosol inhaler Allergies Allergy/AdvReac Type Severity Reaction Status Date / Time No Known Drug Allergies Allergy Verified 11/28/19 10:38 Review of Systems Review of Systems Narrative: All 12 point systems reviewed with the patient and are negative except otherwise documented. Exam Vital Signs (past 8 hours): - 04/07/22 17:02 04/07/22 19:48 04/07/22 18:51 Temperature 97.9 F Pulse Rate 107 H 105 H 114 H Respiratory Rate 22 30 H 22 Blood Pressure 145/89 H Pulse Oximetry 91 97 94 Oxygen Delivery Method Nasal Cannula Nasal Cannula Oxygen Flow Rate 2 3 Fraction of Inspired Oxygen 32 04/07/22 18:54 04/07/22 18:54 04/07/22 19:00 Temperature Pulse Rate 111 H 113 H Respiratory Rate 21 26 H Blood Pressure 147/67 H Pulse Oximetry 96 97 Oxygen Delivery Method Oxygen Flow Rate Fraction of Inspired Oxygen 04/07/22 19:02 04/07/22 19:02 04/07/22 19:30 Temperature Pulse Rate 110 H Respiratory Rate 24 Blood Pressure 151/70 H 157/77 H Pulse Oximetry 95 Oxygen Delivery Method Oxygen Flow Rate Fraction of Inspired Oxygen 04/07/22 19:30 04/07/22 20:00 04/07/22 20:00 Temperature Pulse Rate 113 H 107 H Respiratory Rate 25 H 25 H Blood Pressure 137/66 Pulse Oximetry 92 97 Oxygen Delivery Method Oxygen Flow Rate Fraction of Inspired Oxygen 04/07/22 20:47 04/07/22 20:28 04/07/22 20:28 Temperature Pulse Rate 108 H 118 H Respiratory Rate 28 H 23 Blood Pressure 133/66 Pulse Oximetry 96 97 Oxygen Delivery Method Nasal Cannula Oxygen Flow Rate 3 Fraction of Inspired Oxygen 32 04/07/22 20:30 04/07/22 20:30 04/07/22 21:00 Temperature Pulse Rate 117 H Respiratory Rate 24 Blood Pressure 134/63 128/67 Pulse Oximetry 98 Oxygen Delivery Method Oxygen Flow Rate Fraction of Inspired Oxygen 04/07/22 21:00 04/07/22 21:30 04/07/22 21:30 Temperature Pulse Rate 115 H 109 H Respiratory Rate 23 26 H Blood Pressure 116/57 L Pulse Oximetry 97 95 Oxygen Delivery Method Oxygen Flow Rate Fraction of Inspired Oxygen 04/07/22 22:00 04/07/22 22:00 04/07/22 22:30 Temperature Pulse Rate 103 H Respiratory Rate 26 H Blood Pressure 123/68 122/60 Pulse Oximetry 95 Oxygen Delivery Method Oxygen Flow Rate Fraction of Inspired Oxygen 04/07/22 22:30 Temperature Pulse Rate 98 H Respiratory Rate 27 H Blood Pressure Pulse Oximetry 96 Oxygen Delivery Method Oxygen Flow Rate Fraction of Inspired Oxygen Fraction of Inspired Oxygen 32 SaO2/FiO2 Ratio 300 Oxygen Delivery Method Nasal Cannula Oxygen Flow Rate 3 Narrative Exam Narrative: General: Patient is a fredis thin emaciated looking elderly female, in no distress at this time. HEENT: Normocephalic, atraumatic, extraocular muscles intact, oral pharynx is clear and mucous membranes are moist. Neck is supple and symmetric, trachea is midline, no adenopathy, no thyroid enlargement, nontender, no masses palpated. Negative for JVD wears glasses Chest: Breathing with no nasal flaring, retractions, tachypneic or labored ambar athing. Lungs: Auscultation of all lung mace shallow, tight, equal, occasional expiratory wheezing, poor air exchange. Cardio: Tachycardic regular rate and rhythm without murmur, rubs, or gallops, no carotid bruit, no cardiac pulsations present. Abdomen: Soft nontender, negative for organomegaly, or masses. Bowel sounds are present in all 4 quadrants without guarding or rebound, no CVA tenderness. Musculoskeletal: Notable diffuse muscle wasting, no deformity, crepitus, effusions, cyanosis, clubbing or edema present. Full range of motion intact radial and pedal pulses are normal. Skin: Warm dry and intact without rashes, ulcerations or petechiae. Neuro: Alert and orientated x3, strength is +5/5 in all extremities, sensation to touch intact, no gross deficits noted of cranial nerves. Psych: Patient has a well-kept appearance, appropriate affect, mental status attitude thought context and judgment are appropriate for age. Objective Labs Result Diagrams: 04/07/22 19:00 04/07/22 19:00 Labs: Laboratory Results - last 24 hr 04/07/22 04/07/22 04/07/22 17:08 19:00 19:00 WBC 19.3 H RBC 4.32 Hgb 13.3 Hct 40.1 MCV 92.8 MCH 30.8 MCHC 33.2 RDW 13.1 Plt Count 347 Neut % (Auto) 82.7 H Lymph % (Auto) 3.3 L [place] % (Auto) 13.6 Eos % (Auto) 0.2 L Baso % (Auto) 0.2 Neut # (Auto) 01692 H Lymph # (Auto) 600 L [place] # (Auto) 2600 H Eos # (Auto) 0 Baso # (Auto) 0 Sodium 137 Potassium 4.5 Chloride 96 L Carbon Dioxide 30 BUN 22 H Creatinine 0.54 Estimated GFR > 60 BUN/Creatinine Ratio 40.7 H Glucose 129 H Lactate Calcium 9.7 Total Bilirubin 0.7 AST 27 ALT 24 Alkaline Phosphatase 101 Total Protein 8.7 H Albumin 4.5 Globulin 4.2 H Albumin/Globulin Ratio 1.1 SARS-CoV-2 (PCR) Negative Influenza A (RT-PCR) Flu a negative Influenza B (RT-PCR) Flu b negative 04/07/22 19:00 WBC RBC Hgb Hct MCV MCH MCHC RDW Plt Count Neut % (Auto) Lymph % (Auto) [place] % (Auto) Eos % (Auto) Baso % (Auto) Neut # (Auto) Lymph # (Auto) [place] # (Auto) Eos # (Auto) Baso # (Auto) Sodium Potassium Chloride Carbon Dioxide BUN Creatinine Estimated GFR BUN/Creatinine Ratio Glucose Lactate 1.3 Calcium Total Bilirubin AST ALT Alkaline Phosphatase Total Protein Albumin Globulin Albumin/Globulin Ratio SARS-CoV-2 (PCR) Influenza A (RT-PCR) Influenza B (RT-PCR) Assessment & Plan Assessment & Plan narrative: Apolonia Barba is a 66 yr old female with a history of 1.5 pack a day 40+ year smoking history, chronic respiratory failure on 2 L nasal cannula nightly at home for COPD, with recurrent ED visits for COPD exacerbation, last July of 2021 required hospitalization, it was then when she was discharged on 2 L nasal cannula for the 1st time, patient has been without medical insurance and has been unable to obtain her COPD respiratory controlling medications, leading to her frequent exacerbations requiring hospital intervention and management. Patient admitted for acute on chronic respiratory failure with hypoxia secondary to COPD exacerbation and atypical community-acquired pneumonia, after repeated ED visits and hospitalization failing outpatient management. 1. Acute on chronic respiratory failure secondary to COPD exacerbation, acute on chronic, and community-acquired versus atypical pneumonia, acute, present on admission -In ED: 157/77, 151/70, tachycardic 107-114, tachypneic 22-30 respiratory rate, O2 saturations 90-91% on 2 L nasal cannula. -GOLD:D symptoms -In ED: 3 nebulizing treatments,methylprednisone, azithromycin and Rocephin. -On admit:97.9? BP 137/66 HR108 RR 28 O2 saturation 96% on 3 L nasal cannula. Patient has a -white count 19.3, neutrophils 16,000, mono 2600. BUN/SUPERINTENDENT QUARRY ratio: 40.7 likely representing dehydration, lactate-WNL -procalcitonin/crp ordered. Blood cultures pending, sputum culture, MRSA ordered. -CXR: Hyperexpansion without acute cardiopulmonary processes. -Chest CTA is negative for PE, Multiple bilateral clustered irregular pulmonary nodules with a basilar predominance-findings most likely represent atypical infection, severe centrilobular emphysematous changes. EKG sinus tachycardia with a rate of [address] changes. -respiratory consult, DuoNebs q.4 hours while awake, incentive spirometry -prednisone 40 mg p.o. q.day -due to recent COPD exacerbations, and presence of emphysema CTA will cover patient for Pseudomonas, MRSA, and pneumococcal beta-lactam: Per up to date 2021 -put patient on vancomycin, Zosyn, Levaquin-will alter based on blood culture results and patient's response. -placed DUMPER BAILER OPERATOR consult for support to help patient obtain respiratory medications: -Recommend referral to pulmonology, pulmonary function tests, based on patient's gold status group D she requires more aggressive COPD management and would benefit from Trelegy Ellipta in combination with other chronic medications. 2. Tobacco abuse, in remission, present on admission -patient quit following July hospitalization. 3. Malnutrition, severe, acute on chronic, present on admission -as evidence by Today BMI 15.8, prior BMI 17.4 -this malnutrition weight loss raises suspicious concerns for malignancy. -patient's malnutrition places them at high risk for medical and surgical complications because of the severe malnutrition in relation to acute/chronic illness. This increases the difficulty in complexity of medical management and increases the chances poor outcomes such as mortality and morbidity as well as impaired wound healing, immune suppression, and may impact patient's respiratory function and oxygenation. -dietary consult ordered to evaluate and implement steps to improve caloric intake and nutrition. Code status:Full Surrogate decision maker: Colleen Medrano Daughter COVID PCR:Negative DVT/VTE prophylaxis: Lovenox and SCDs Disposition: Patient admitted to [facility] due to recurrence of COPD exacerbation and acute on chronic respiratory failure requiring ED visits and hospitalization within the past year. Expected length of stay greater than 2 midnights. I have utilized all available immediate resources to obtain, update, or review the patient's current medications. I confirmed that the patient's advanced care plan is present, Code status is documented and/or surrogate decision maker is listed in the patient's medical record. I have personally reviewed patient's chart notes from PCP, specialists, diagnostic imaging, and laboratory, Time Spent With Patient Critical Care time: I spent a total of [] minutes of critical care time on this patient's care today; this time is exclusive of procedural time.
[2022-04-07 23:11] LABS: Procalcitonin 0.13 ng/mL (<0.5)
[2022-04-07 23:12] LABS: C-Reactive Protein Quant 7.8 mg/dL (<1.0); Magnesium 1.9 mg/dL (1.6-2.3)
[2022-04-07 23:17] LABS: NT-proBNP (BNP-Adult 18+) 339 pg/mL (<125)
[2022-04-08] VITALS (15 sets, daily range): BP systolic 105–128; BP diastolic 56–78; PULSE 79–89; RESP 18–22; TEMP 36.4–36.7; O2SAT 92–97
[2022-04-08] MEDS: PIPERACILLIN/TAZO 4.5 GM in SODIUM CHLORIDE 0.9% 100 ML IV (00:55)
[2022-04-08] MEDS: ACETAMINOPHEN 325 MG TABLET 650 MG PO ×3 (00:56→17:15)
[2022-04-08 01:22] LABS: Appearance Urine UA CLEAR; Bilirubin Urine UA NEGATIVE (NEGATIVE); Color Urine UA YELLOW; Glucose Urine UA 1+ g/dL (Negative); Ketones Urine UA 2+ (NEGATIVE); Leukocyte Esterase Urine UA NEGATIVE (NEGATIVE); Nitrite Urine UA NEGATIVE (Negative); Occult Blood Urine UA NEGATIVE (Negative); Protein Urine UA 1+ (Negative); Specific Gravity Urine UA 1.015 (1.000-1.035); Urobilinogen Urine UA 0.2 E.U./dL (0.2)
[2022-04-08 01:28] LABS: pH Urine UA 5.5 (4.5-8.0)
[2022-04-08 01:29] LABS: Bacteria Urine Occasional (0-1); Culture Indicated Urine Cult Not Indicated; RBC Urine None Seen (0-5/HPF); Squamous Epithelial Cell Urine 0-1 /HPF (0-5/HPF); WBC Urine 0-1/HPF (0-5/HPF)
[2022-04-08] MEDS: VANCOMYCIN 1,000 MG/200 ML PIGGYBACK 150 MG IV (01:49)
[2022-04-08 04:22] LABS: INR 1.2 (0.9-1.3); Prothrombin Time 13.3 SECONDS (10.1-12.7)
[2022-04-08 04:30] LABS: Alanine Aminotransferase 20 IU/L (<35); Albumin 3.8 g/dL (3.5-5.0); Albumin Globulin Ratio 1.1 (1.0-2.8); Alkaline Phosphatase 78 U/L (38-126); Aspartate Aminotransferase 23 IU/L (14-36); BUN Creatinine Ratio 37.3 (6-22); Bilirubin Total 0.4 mg/dL (0.2-1.3); Blood Urea Nitrogen 19 mg/dL (7-17); Calcium 8.8 mg/dL (8.4-10.2); Carbon Dioxide 25 mmol/L (22-32); Chloride 99 mmol/L (98-107); Estimated Glomerular Filt Rate > 60 mL/min (>60); Globulin 3.5 g/dL (1.7-4.1); Glucose 175 mg/dL (80-110); HEMOLYSIS 21 (0-50); Potassium 4.4 mmol/L (3.4-5.1); Sodium 133 mmol/L (137-145); Total Protein 7.3 g/dL (6.3-8.2)
[2022-04-08 04:34] LABS: Add Manual Diff / Slide Review NO; Basophils Absolute Auto 100 /uL (0-100); Basophils Percent Auto 0.8 % (0-2); Eosinophils Absolute Auto 0 /uL (0-450); Hematocrit 35.4 % (36-46); Hemoglobin 11.8 g/dL (12.0-16.0); Lymphocytes Absolute Auto 300 /uL (1100-4500); Lymphocytes Percent Auto 2.4 % (25-40); Mean Corpuscular HGB Conc 33.3 % (30-36); Mean Corpuscular Hemoglobin 30.9 PG (26-34); Mean Corpuscular Volume 92.8 fL (80-100); Monocytes Absolute Auto 400 /uL (0-900); Neutrophils Absolute Auto 12200 /uL (1500-7000); Neutrophils Percent Auto 93.8 % (50-75); Platelet Count 275 X10^3/uL (150-400); Red Blood Cell Count 3.81 X10^6/uL (4.0-5.2); Red Cell Distribution Width 12.7 % (11.6-14.8)
[2022-04-08] MEDS: PIPERACILLIN/TAZO 3.375 GM in SODIUM CHLORIDE 0.9% 100 ML IV (05:11)
--- NOTE | 2022-04-08 08:55 | PM.PN.1 ---
Subjective Subjective Date Patient Seen: 04/08/22 Time Patient Seen: 13:00 Interval history: Patient says her breathing is much improved today. No complaints. Exam Vital Signs (past 8 hours): - 04/08/22 03:00 04/08/22 04:40 Temperature 97.7 F Pulse Rate 89 Respiratory Rate 20 Blood Pressure 128/70 Pulse Oximetry 92 94 Oxygen Flow Rate 2 2 Fraction of Inspired Oxygen 28 SaO2/FiO2 Ratio 335 Oxygen Delivery Method Nasal Cannula Oxygen Flow Rate 2 Narrative Exam Narrative: General: Patient is a fredis thin emaciated looking elderly female, in no distress at this time. HEENT: Normocephalic, atraumatic, extraocular muscles intact, oral pharynx is clear and mucous membranes are moist. Neck is supple and symmetric, trachea is midline, no adenopathy, no thyroid enlargement, nontender, no masses palpated. Negative for JVD wears glasses Chest: Breathing with no nasal flaring, retractions, tachypneic or labored breathing. Lungs: Auscultation of all lung mace shallow, tight, equal, occasional expiratory wheezing, poor air exchange. Cardio: Tachycardic regular rate and rhythm without murmur, rubs, or gallops, no carotid bruit, no cardiac pulsations present. Abdomen: Soft nontender, negative for organomegaly, or masses. Bowel sounds are present in all 4 quadrants without guarding or rebound, no CVA tenderness. Musculoskeletal: Notable diffuse muscle wasting, no deformity, crepitus, effusions, cyanosis, clubbing or edema present. Full range of motion intact radial and pedal pulses are normal. Skin: Warm dry and intact without rashes, ulcerations or petechiae. Neuro: Alert and orientated x3, strength is +5/5 in all extremities, sensation to touch intact, no gross deficits noted of cranial nerves. Psych: Patient has a well-kept appearance, appropriate affect, mental status attitude thought context and judgment are appropriate for age. Objective Labs Result Diagrams: 04/08/22 04:05 04/08/22 04:05 Labs: Laboratory Results - last 24 hr 04/07/22 04/07/22 04/07/22 17:08 19:00 19:00 WBC 19.3 H RBC 4.32 Hgb 13.3 Hct 40.1 MCV 92.8 MCH 30.8 MCHC 33.2 RDW 13.1 Plt Count 347 Neut % (Auto) 82.7 H Lymph % (Auto) 3.3 L [place] % (Auto) 13.6 Eos % (Auto) 0.2 L Baso % (Auto) 0.2 Neut # (Auto) 39907 H Lymph # (Auto) 600 L [place] # (Auto) 2600 H Eos # (Auto) 0 Baso # (Auto) 0 PT INR Sodium 137 Potassium 4.5 Chloride 96 L Carbon Dioxide 30 BUN 22 H Creatinine 0.54 Estimated GFR > 60 BUN/Creatinine Ratio 40.7 H Glucose 129 H Lactate Calcium 9.7 Magnesium Total Bilirubin 0.7 AST 27 ALT 24 Alkaline Phosphatase 101 C-Reactive Protein NT-Pro-B Natriuret Pep Total Protein 8.7 H Albumin 4.5 Globulin 4.2 H Albumin/Globulin Ratio 1.1 Procalcitonin Urine Color Urine Appearance Urine pH Ur Specific [place] Urine Protein Urine Glucose (UA) Urine Ketones Urine Occult Blood Urine Nitrate Urine Bilirubin Urine Urobilinogen Ur Leukocyte Esterase Urine RBC Urine WBC Ur Squamous Epith Cells Urine Bacteria Ur Culture Indicated? Nasal Screen MRSA (PCR) SARS-CoV-2 (PCR) Negative Influenza A (RT-PCR) Flu a negative Influenza B (RT-PCR) Flu b negative 04/07/22 04/07/22 04/07/22 19:00 19:00 19:00 WBC RBC Hgb Hct MCV MCH MCHC RDW Plt Count Neut % (Auto) Lymph % (Auto) [place] % (Auto) Eos % (Auto) Baso % (Auto) Neut # (Auto) Lymph # (Auto) [place] # (Auto) Eos # (Auto) Baso # (Auto) PT INR Sodium Potassium Chloride Carbon Dioxide BUN Creatinine Estimated GFR BUN/Creatinine Ratio Glucose Lactate 1.3 Calcium Magnesium 1.9 Total Bilirubin AST ALT Alkaline Phosphatase C-Reactive Protein 7.8 H NT-Pro-B Natriuret Pep 339 H Total Protein Albumin Globulin Albumin/Globulin Ratio Procalcitonin 0.13 Urine Color Urine Appearance Urine pH Ur Specific [place] Urine Protein Urine Glucose (UA) Urine Ketones Urine Occult Blood Urine Nitrate Urine Bilirubin Urine Urobilinogen Ur Leukocyte Esterase Urine RBC Urine WBC Ur Squamous Epith Cells Urine Bacteria Ur Culture Indicated? Nasal Screen MRSA (PCR) SARS-CoV-2 (PCR) Influenza A (RT-PCR) Influenza B (RT-PCR) 1104/08/22 04/08/22 00:43 01:18 04:05 WBC 13.0 H RBC 3.81 L Hgb 11.8 L Hct 35.4 L MCV 92.8 MCH 30.9 MCHC 33.3 RDW 12.7 Plt Count 275 Neut % (Auto) 93.8 H Lymph % (Auto) 2.4 L [place] % (Auto) 3.0 Eos % (Auto) 0.0 L Baso % (Auto) 0.8 Neut # (Auto) 30476 H Lymph # (Auto) 300 L [place] # (Auto) 400 Eos # (Auto) 0 Baso # (Auto) 100 PT INR Sodium Potassium Chloride Carbon Dioxide BUN Creatinine Estimated GFR BUN/Creatinine Ratio Glucose Lactate Calcium Magnesium Total Bilirubin AST ALT Alkaline Phosphatase C-Reactive Protein NT-Pro-B Natriuret Pep Total Protein Albumin Globulin Albumin/Globulin Ratio Procalcitonin Urine Color Yellow Urine Appearance Clear Urine pH 5.5 Ur Specific [place] 1.015 Urine Protein 1+ H Urine Glucose (UA) 1+ H Urine Ketones 2+ H Urine Occult Blood Negative Urine Nitrate Negative Urine Bilirubin Negative Urine Urobilinogen 0.2 Ur Leukocyte Esterase Negative Urine RBC None seen Urine WBC 0-1/hpf Ur Squamous Epith Cells 0-1 /hpf Urine Bacteria Occasional (0-1) Ur Culture Indicated? Cult not indicated Nasal Screen MRSA (PCR) Negative for mrsa SARS-CoV-2 (PCR) Influenza A (RT-PCR) Influenza B (RT-PCR) 04/08/22 04/08/22 04:05 04:05 WBC RBC Hgb Hct MCV MCH MCHC RDW Plt Count Neut % (Auto) Lymph % (Auto) [place] % (Auto) Eos % (Auto) Baso % (Auto) Neut # (Auto) Lymph # (Auto) [place] # (Auto) Eos # (Auto) Baso # (Auto) PT 13.3 H INR 1.2 Sodium 133 L Potassium 4.4 Chloride 99 Carbon Dioxide 25 BUN 19 H Creatinine 0.51 L Estimated GFR > 60 BUN/Creatinine Ratio 37.3 H Glucose 175 H Lactate Calcium 8.8 Magnesium Total Bilirubin 0.4 AST 23 ALT 20 Alkaline Phosphatase 78 C-Reactive Protein NT-Pro-B Natriuret Pep Total Protein 7.3 Albumin 3.8 Globulin 3.5 Albumin/Globulin Ratio 1.1 Procalcitonin Urine Color Urine Appearance Urine pH Ur Specific [place] Urine Protein Urine Glucose (UA) Urine Ketones Urine Occult Blood Urine Nitrate Urine Bilirubin Urine Urobilinogen Ur Leukocyte Esterase Urine RBC Urine WBC Ur Squamous Epith Cells Urine Bacteria Ur Culture Indicated? Nasal Screen MRSA (PCR) SARS-CoV-2 (PCR) Influenza A (RT-PCR) Influenza B (RT-PCR) [facility] Medical History (Updated 04/07/22 @ 23:32 by EDDIE Conley-MIYA) BMI less than 19,adult Chronic respiratory failure with hypoxia, on home O2 therapy COPD exacerbation Emphysema lung Tobacco abuse Family History (Updated 04/07/22 @ 23:31 by EDDIE Conley-MIYA) Father Diabetes mellitus Congestive heart failure Mother Diabetes mellitus Social History household members: none Smoking Status: Former smoker alcohol intake: current Assessment & Plan Assessment & Plan narrative: 1. Acute on chronic respiratory failure secondary to COPD exacerbation vs CAP, acute on chronic, and community-acquired versus atypical pneumonia, acute, present on admission - In ED: 157/77, 151/70, tachycardic 107-114, tachypneic 22-30 respiratory rate, O2 saturations 90-91% on 2 L nasal cannula. -CXR: Hyperexpansion without acute cardiopulmonary processes. -Chest CTA is negative for PE, Multiple bilateral clustered irregular pulmonary nodules with a basilar predominance-findings most likely represent atypical infection, severe centrilobular emphysematous changes. EKG sinus tachycardia with a rate of [address] changes. -respiratory consult, DuoNebs q.4 hours while awake, incentive spirometry -prednisone 40 mg p.o. q.day -continue rocephin and azithro for community acquired PNA -Recommend referral to pulmonology, pulmonary function tests, based on patient's gold status group D she requires more aggressive COPD management and would benefit from Trelegy Ellipta in combination with other chronic medications. 2. Tobacco abuse, in remission, present on admission -patient quit following July hospitalization for COPD exac 3. Malnutrition, severe, acute on chronic, present on admission -as evidence by Today BMI 15.8, prior BMI 17.4 -this malnutrition weight loss raises suspicious concerns for malignancy. -patient's malnutrition places them at high risk for medical and surgical complications because of the severe malnutrition in relation to acute/chronic illness. This increases the difficulty in complexity of medical management and increases the chances poor outcomes such as mortality and morbidity as well as impaired wound healing, immune suppression, and may impact patient's respiratory function and oxygenation. -dietary consult ordered to evaluate and implement steps to improve caloric intake and nutrition. Code status:Full Surrogate decision maker: Colleen Medrano Daughter COVID PCR:Negative DVT/VTE prophylaxis: Lovenox and SCDs Disposition: Home in 2 days pending COPD/PNA improvement. Time Spent With Patient Critical Care time: I spent a total of [] minutes of critical care time on this patient's care today; this time is exclusive of procedural time. Quality VTE Deep Vein Thrombosis/Pulmonary Embolism Present on Admission: No
[2022-04-08] MEDS: ENOXAPARIN 40 MG/0.4 ML SYRINGE SUBCUT (09:07)
[2022-04-08] MEDS: predniSONE 20 MG TABLET 40 MG PO (09:07)
[2022-04-08] MEDS: ALBUTEROL/IPRATROPIUM 3 ML AMPUL INH ×4 (09:09→22:37)
[2022-04-08] MEDS: AZITHROMYCIN 250 MG TABLET 500 MG PO (09:15)
[2022-04-08] MEDS: cefTRIAXone 1,000 MG in SODIUM CHLORIDE 0.9% 100 ML 200 MG IV (09:18)
--- NOTE | 2022-04-08 12:56 | CM.IDA ---
Initial DCP Assessment Patient is 66 y/o female who presents to due to concern for difficulty breathing. Patient was admitted due to Chronic Respiratory Failure with Hypoxia secondary to COPD exacerbation and Pnemonia. Patient is on 2 Liters of home oxygen but due to symptoms requiring 3 liters. Patient endorses she uses nebulizers and inhaler at home as well. Patient has hx of Hypoxia, Chronic Respiratory Failure, & COPD Patient's PCP is Dr. Leoncio Rodriguez, initially patient was listed as self pay. As of today Patient is showing that she has [employer] [facility] and Medicare insurance. MVA OPERATOR and YARON Noe DCP enter room to meet with patient. Patient presents as A/Ox4. Patient endorses her independence with ADLs at baseline but states that her daughter assists her with deep cleaning in the home. Patient resides at home alone and endorses that her daughter and neighbors check in on her regularly. 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 MVA OPERATOR and DCP discuss Temporary Disability and provide patient with paperwork to apply. Patient will likely need medical note for employer [employer] evaluation is ordered due to concern for patient's malnutrition. Patient endorses she is open to HH if needed upon further assessment for PT or OT. Per hospitalist, patient will likely stay greater than 2 midnights to treat Pneumonia. Patient denies current DCP needs at this time. Plan: DCP to f/u with POC, patient currently tx for Pneumonia. Likely d/c to home in a few day, no current DCP needs at this time. SRI Gonzales Discharge Planning/Care Management CM Discharge Assessment Start: 04/08/22 12:54 Freq: Status: Active Protocol: Document 04/08/22 12:54 LN (Rec: 04/08/22 12:56 LN [id number]) Discharge Planning Assessment Assigned Flooring Machine Operator SRI Flores Advance Directives? No Advance Directives on File No History Provided By Patient,Medical Record Has Patient been admitted in last 30 No days? Prior Living Arrangements House Household Members none Type of transporation used prior to Drives own vehicle admit Independent with ADL's Yes Is patient alert and oriented? Yes DME Already Rented / Owned Oxygen,Nebulizer Discharge Plan Home Transportation Arrangement Family Referrals Initiated None needed Please Provide Date Initial DC 04/08/22 Assessment Was Performed
--- NOTE | 2022-04-08 16:19 | DIET.CONS ---
Dietary Consultation Note Admission Date: 04/07/2022 22:24 Assessment: 66 yo F admitted for SOB/Dyspnea r/t COPD referred to RD for BMI 15.4 (severe). PMH of COPD, pneumonia, and malnutrition. Apolonia reports inadequate oral intake r/t COPD and pneumonia.? States when she cannot breathe, this is a barrier to eating.?Endorses n/v/d this week prior to admission. Before this recent illness, reports she was eating well and gaining weight.? Current weight of 39.094 kg (BMI 15.4), a 10.48% increase in 8 mo.? UBW reported at last RD assessment was 65.91-68.18 kg. Since last assessment she has increased kcal intake and has been drinking ONS 2-3 x per day. Diet recall: 09:00 wake 10:00 B Jaye yogurt with berries and granola 14:00 L Gray and soup at [employer]? 19:00 D Pot pie 22:00 Snack Jaye yogurt with berries or cereal with milk 2-3 bottles/d Boost Chocolate in between meals Pt prefers only chocolate varieties of ONS. NFPE: hair loss noticeable in patches near hair line, severely hollowed temples and orbitals and buccal pads, prominent clavicle, acromion process very prominent, depression between ribs apparent, and depressed interosseous muscle. Reports a lot of financial and family stress exacerbating her current health conditions. Ht: 157.48 cm Wt: 39.094 kg BMI: 15.7 Last BM: 04/07/22 (04/07/22 22:54) MNA: 11 David Score: 20 Diet: 04/07/22 Breakfast General (Regular) Diet Diet Modifications: Nutrition Percent Meal Consumed 25% 04/08/22 09:00 Labs: RBC 3.81 X10^6/uL (4.0-5.2) L 04/08/22 04:05 Hgb 11.8 g/dL (12.0-16.0) L 04/08/22 04:05 Hct 35.4 % (36-46) L 04/08/22 04:05 Creatinine 0.51 mg/dL (0.52-1.04) L 04/08/22 04:05 Lactate 1.3 mmol/L (0.7-2.1) 04/07/22 19:00 NT-Pro-B Natriuret Pep 339 pg/mL (<125) H 04/07/22 19:00 Nutrition Diagnosis: Severe [id number] Protein Calorie Malnutrition r/t inadequate oral intake and COPD increasing kcal needs aeb BMI 15.4 (severe), hair loss noticeable in patches near hair line, severely hollowed temples and orbitals and buccal pads, prominent clavicle, chromium process very prominent, depression between ribs apparent, and depressed interosseous muscle. -The patient is at much higher risk for medical and surgical complications because of her malnutrition.? This increases the difficulty and complexity of medical and surgical interventions and increases the chances of poor outcomes such as morbidity and mortality. Interventions: To support kcal and pro needs provide Ensure Enlive 2-3 bottles/d while admitted with goal to work back up to pre-admission diet intake levels. EER: 1600kcals (40-42kcal/kg per malnutrition);78g PRO (2g/kg per malnutrition) Monitoring/Evaluations: weights, PO, ONS tolerance, RD follow-up three days Electronically Signed by: Fauzia Lowery 04/08/22 16:19 Clinical Dietitian [address] [address]
[2022-04-08] MEDS: BUDESONIDE 0.5 MG/2 ML NEB INH (19:19)
[2022-04-09] VITALS (10 sets, daily range): BP systolic 96–109; BP diastolic 55–64; PULSE 71–84; RESP 16–20; TEMP 35.6–37.1; O2SAT 93–98
[2022-04-09] MEDS: ACETAMINOPHEN 325 MG TABLET 650 MG PO (05:44)
[2022-04-09 06:04] LABS: Add Manual Diff / Slide Review NO; Basophils Absolute Auto 0 /uL (0-100); Basophils Percent Auto 0.1 % (0-2); Eosinophils Absolute Auto 0 /uL (0-450); Eosinophils Percent Auto 0.1 % (2-4); Hematocrit 30.7 % (36-46); Hemoglobin 10.1 g/dL (12.0-16.0); Lymphocytes Absolute Auto 900 /uL (1100-4500); Mean Corpuscular Hemoglobin 30.7 PG (26-34); Mean Corpuscular Volume 93.1 fL (80-100); Monocytes Absolute Auto 1200 /uL (0-900); Monocytes Percent Auto 10.5 % (3-14); Neutrophils Absolute Auto 9400 /uL (1500-7000); Neutrophils Percent Auto 81.3 % (50-75); Platelet Count 287 X10^3/uL (150-400); Red Cell Distribution Width 13.2 % (11.6-14.8); White Blood Cell Count 11.6 X10^3/uL (4.5-11.0)
[2022-04-09 06:17] LABS: Alanine Aminotransferase 21 IU/L (<35); Albumin 2.9 g/dL (3.5-5.0); Albumin Globulin Ratio 0.9 (1.0-2.8); Alkaline Phosphatase 62 U/L (38-126); Aspartate Aminotransferase 23 IU/L (14-36); BUN Creatinine Ratio 28.9 (6-22); Bilirubin Total < 0.1 mg/dL (0.2-1.3); Blood Urea Nitrogen 13 mg/dL (7-17); Calcium 8.5 mg/dL (8.4-10.2); Carbon Dioxide 31 mmol/L (22-32); Chloride 103 mmol/L (98-107); Estimated Glomerular Filt Rate > 60 mL/min (>60); Globulin 3.1 g/dL (1.7-4.1); Glucose 102 mg/dL (80-110); HEMOLYSIS < 15 (0-50); Potassium 3.9 mmol/L (3.4-5.1); Sodium 139 mmol/L (137-145)
[2022-04-09] MEDS: ALBUTEROL/IPRATROPIUM 3 ML AMPUL INH ×2 (07:00→11:21)
[2022-04-09] MEDS: BUDESONIDE 0.5 MG/2 ML NEB INH (07:00)
[2022-04-09] MEDS: ENOXAPARIN 40 MG/0.4 ML SYRINGE SUBCUT (08:37)
[2022-04-09] MEDS: cefTRIAXone 1,000 MG in SODIUM CHLORIDE 0.9% 100 ML 200 MG IV (08:37)
[2022-04-09] MEDS: predniSONE 20 MG TABLET 40 MG PO (08:37)
[2022-04-09] MEDS: AZITHROMYCIN 250 MG TABLET 500 MG PO (08:37)
--- NOTE | 2022-04-09 09:42 | P.DS_ITS ---
History of Present Illness History of Present Illness Date Patient Seen: 04/09/22 Chief complaint: difficulty breathing Narrative: Per Natalie Ayala, [facility]-: Apolonia Barba is a 66 yr old female with a history of 1.5 pack a day 40+ year smoking history, and COPD, with recurrent ED visits for COPD, last July of 2021 required hospitalization for COPD exacerbation, was discharged home on O2 for the 1st time. She presents to the ED today complaining of shortness breath, escalating oxygen demand, and cough for the past 2 days.? Patient is on 2 L nasal cannula mostly at night at home (as she was trying to wean off oxygen) notes that it appears when she is off her oxygen for too long she developed severe headache, escalating demand over the past 2 days requiring 3 L at home now. Patient notes that she is been without insurance and been unable to obtain Symbicort, Xopenex and other respiratory medications. She does have nebulizer at home and friends have given her albuterol to use in her nebulizer. Patient has been fully vaccinated against COVID and flu vaccine. In the ED patient had mildly elevated blood pressure 157/77, 151/70, tachycardic 107-114, tachypneic 22-30 respiratory rate, O2 saturations 90-91% on 2 L nasal cannula. Patient received 3 nebulizing treatments, a dose of IV methylprednisone, a dose of azithromycin and Rocephin. Patient states that shortness of breath is improved, cough continues dry improved, positive headache improved, positive urinary frequency, and occansional bowel incontinence, no nasal congestion, ear, eye discomfort, noted costochondritis diffusely bilaterally secondary to coughing, patient finds that eating is extremely fatiguing and or drinking, and relates this to her decreased oral intake. Patient denies cardiac chest pain, fever, body aches, chills, abdominal pain, nausea, vomiting, diarrhea, constipation, hematemesis, urinary dysuria, hematuria, melena blood in stool, skin wounds or infections, recent travel, exposure to illness, no recent steroid use, no recent antibiotic use, denies recent illness injury or trauma. On admit temp 97.9? BP 137/66 tachycardic 108 tachypneic 28 O2 saturation 96% on 3 L nasal cannula. Patient has a white count 19.3 with a moderate left shift neutrophils 16,000, mono 2600. Chemistry and liver panel are predominantly unremarkable chloride 96 BUN 22, BUN creatinine ratio is elevated at 40.7 likely representing dehydration, lactate is within normal limits, procalcitonin ordered, total protein 8.7, globin 4.2. CXR: Hyperexpansion without acute cardiopulmonary processes. Chest CTA is negative for PE, Multiple bilateral clustered irregular pulmonary nodules with a basilar predominance-findings most likely represent atypical infection, severe centrilobular emphysematous changes. EKG sinus tachycardia with a rate of [address] changes. Patient admitted for acute on chronic respiratory failure with hypoxia secondary to COPD exacerbation and atypical community-acquired pneumonia. Discharge Providers Provider Date of admission: 04/07/22 22:24 Discharge Date: 04/09/22 Primary care physician: Leoncio Rodriguez MD Consults: 04/07/22 22:34 Consult to Cardio/Pulmonary Rehabilitation Routine Comment: Physician Instructions: Evaluate and treat Consult to Respiratory Therapy Evaluate & Treat Comment: COPD exac/ CAP Physician Instructions: Evaluate and treat 04/07/22 22:46 Consult to Dietitian, Adult Routine Comment: Reason For Exam: BMI 17.4 04/08/22 06:15 Consult to WASHING TUB OPERATOR - Clamp Forklift Operator Routine Comment: pt needs help to get her REsp medications WASHING TUB OPERATOR Consult needed for:: Community Health Res Need Discharge provider: Jai Wilson DO Summary Hospital Course Discharge Diagnosis: Please see hospital course by problem list noted below Hospital Course: 1. Acute on chronic respiratory failure secondary to COPD exacerbation vs CAP, acute on chronic, and community-acquired bacterial pneumonia, acute, present on admission -Patient was admitted with acute on chronic respiratory failure workup included CTA which was negative for PE, but did show severe COPD, with probable bilateral pneumonia. -she was started on prednisone 40 mg p.o. q.day with improvement along with rocephin and azithro for community acquired PNA. She will discharge on prednisone and augmentin to complete treatment for COPD exacerbation and presumed bacerial pneumonia. -Recommend referral to pulmonology, pulmonary function tests on discharge. -Patient developed diarrhea on the day of discharge, likely due to antibiotic therapy as C. diff testing was negative. Can take immodium as needed on discharge. 2. Tobacco abuse, in remission, present on admission -patient quit following July hospitalization for COPD exacerbation. 3. Malnutrition, severe, acute on chronic, present on admission -as evidence by Today BMI 15.8, prior BMI 17.4 -this malnutrition weight loss raises suspicious concerns for malignancy. -patient's malnutrition places them at high risk for medical and surgical compli cations because of the severe malnutrition in relation to acute/chronic illness.? This increases the difficulty in complexity of medical management and increases the chances poor outcomes such as mortality and morbidity as well as impaired wound healing, immune suppression, and may impact patient's respiratory function and oxygenation. -dietary consult ordered to evaluate and implement steps to improve caloric intake and nutrition. Time Spent with Patient Time spent: Greater than 30 minutes Exam Vital Signs (past 8 hours): - 04/09/22 03:00 04/09/22 05:30 04/09/22 05:46 Temperature 98.7 F Pulse Rate 78 71 Respiratory Rate 20 Blood Pressure 96/55 L Pulse Oximetry 93 94 93 Oxygen Delivery Method Nasal Cannula Oxygen Flow Rate 1 1 1 04/09/22 05:50 04/09/22 07:03 04/09/22 08:04 Temperature Pulse Rate 76 Respiratory Rate 16 Blood Pressure 109/56 L Pulse Oximetry 97 Oxygen Delivery Method Room Air Nasal Cannula Oxygen Flow Rate 1 04/09/22 08:04 04/09/22 08:31 Temperature 96.1 F L Pulse Rate 84 Respiratory Rate 17 Blood Pressure 108/64 Pulse Oximetry 96 98 Oxygen Delivery Method Nasal Cannula Oxygen Flow Rate 2 0 Fraction of Inspired Oxygen 28 SaO2/FiO2 Ratio 335 Oxygen Delivery Method Nasal Cannula Oxygen Flow Rate 0 Narrative Exam Narrative: General: Patient is a fredis thin emaciated looking elderly female, in no distress at this time. HEENT: Normocephalic, atraumatic, extraocular muscles intact, oral pharynx is clear and mucous membranes are moist. Neck is supple and symmetric, trachea is midline. Chest: Breathing with no nasal flaring, retractions, tachypneic or labored breathing. Lungs: CTA b/l no wheezing rhonchi or rales today. Cardio: TRRR without murmur, rubs, or gallops, no carotid bruit, no cardiac pulsations present. Abdomen: S NT ND Musculoskeletal: Notable diffuse muscle wasting, no deformity, crepitus, effusions, cyanosis, clubbing or edema present. Full range of motion intact r adial and pedal pulses are normal. Skin: Warm dry and intact without rashes, ulcerations or petechiae. Neuro: Alert and orientated x3, strength is +5/5 in all extremities, sensation to touch intact, no gross deficits noted of cranial nerves. Psych: Patient has a well-kept appearance, appropriate affect, mental status attitude thought context and judgment are appropriate for age. Objective Labs Result Diagrams: 04/09/22 05:23 04/09/22 05:23 Labs: Laboratory Results - last 24 hr 04/09/22 04/09/22 05:23 05:23 WBC 11.6 H RBC 3.30 L Hgb 10.1 L Hct 30.7 L MCV 93.1 MCH 30.7 MCHC 33.0 RDW 13.2 Plt Count 287 Neut % (Auto) 81.3 H Lymph % (Auto) 8.[address] [place] % (Auto) 10.5 Eos % (Auto) 0.1 L Baso % (Auto) 0.1 Neut # (Auto) 9400 H Lymph # (Auto) [address] [place] # (Auto) 1200 H Eos # (Auto) 0 Baso # (Auto) 0 Sodium 139 Potassium 3.9 Chloride 103 Carbon Dioxide 31 BUN 13 Creatinine 0.45 L Estimated GFR > 60 BUN/Creatinine Ratio 28.9 H Glucose 102 Calcium 8.5 Total Bilirubin < 0.1 L AST 23 ALT 21 Alkaline Phosphatase 62 Total Protein 6.0 L Albumin 2.9 L Globulin 3.1 Albumin/Globulin Ratio 0.9 L [facility] Medical History (Updated 04/07/22 @ 23:32 by KRISTOFER Conley) BMI less than 19,adult Chronic respiratory failure with hypoxia, on home O2 therapy COPD exacerbation Emphysema lung Tobacco abuse Family History (Updated 04/07/22 @ 23:31 by KRISTOFER Conley) Father Diabetes mellitus Congestive heart failure Mother Diabetes mellitus Social History household members: none Smoking Status: Former smoker alcohol intake: current Discharge Plan Discharge Plan Patient Disposition: Home Provider Discharge Comment: You were admitted to the hospital with shortness of breath due to pneumonia. Continue steroids and antibiotics at home, no other medication changes are recommended at this time. Discharge orders & Medications Prescriptions: New prednisone 20 mg Tablet 40 mg PO DAILY 3 Days Qty: 6 0RF amoxicillin-pot clavulanate 875-125 mg tablet 1 tab PO BID 5 Days Qty: 10 0RF Continued budesonide-formoterol 160-4.5 mcg/actuation HFA aerosol inhaler 2 puff INHALATION BID Label Comments: inhale 2 puffs by mouth twice a day Follow up/Referrals: Leoncio Rodriguez MD [Primary Care Provider] - Diet/Activity/Treatments Diet: Diet as Tolerated Activity: As tolerated Oxygen: Keep oxygen levels between 88-92% at home. Visit Report/Discharge Packet Instructions: DI for Atypical Pneumonia Discharge Data Primary Care Provider: Leoncio Rodriguez Quality VTE Deep Vein Thrombosis/Pulmonary Embolism Present on Admission: No
[2022-04-09 10:57] LABS: Clostridium Difficile Tox PCR Negative for C. diff (Negative)
--- NOTE | 2022-04-09 11:10 | CM.DPNOTE ---
Discharge Planning Note: Met with patient, she is feeling better and thinks she will be going home. Her c-diff test was negative. Plan: Per MD she is discharging. She refuses HH which had been explained to her by previous DCP. Patient will return home with family transporting. Sweetie Pederson RN/DCP
[2022-04-09] MEDS: LOPERAMIDE 2 MG CAPSULE PO (11:15)
--- NOTE | 2022-04-09 13:24 | PC.NURSE ---
Day shift: Pt left unit at approx 1325 via WC. Pt's Daughter is driving her home. Paperwork signed and all questions answered. Pt has all personal belongings. New MD scripts sent to Pt's pharmacy electronic.
== END 2022-04-09 13:27 | disposition home or self-care (01) | DRG 193 ==
LOC: ED 21:59 → AC 22:25
PROVIDERS: Emergency Medicine; Internal Medicine; Admitting Provider Nurse Practitioner Family; Emergency Provider Emergency Medicine; PCP Family Medicine; Referring Provider Emergency Medicine; Visit Provider Nurse Practitioner Family
DX: J18.9 Pneumonia, unspecified organism (principal); E43 Unspecified severe protein-calorie malnutrition; J96.21 Acute and chronic respiratory failure with hypoxia; J44.1 Chronic obstructive pulmonary disease with (acute) exacerbation; Z68.1 Body mass index [BMI] 19.9 or less, adult; Z99.81 Dependence on supplemental oxygen; Z20.822 Contact with and (suspected) exposure to COVID-19; Z87.891 Personal history of nicotine dependence
CPT/HCPCS: 36415; 71046; 71275; 80053; 81001; 83605; 83735; 83880; 84145; 85025; 85610; 86140; 87040; 87070; 87205; 87493; 87635; 87797; 93005; 93010; 94640; 94760; 96365; 96375; 99284; 99285; C9803; J0696; J1650; J2543; J2930; Q9967